=== PATIENT | female | born 1930 | race Caucasian/White ===

== ENCOUNTER 2017-10-05 12:29 | Inpatient (IN) | payer OTHER, MEDICARE ==
[~2017-10-05] VITALS: Ht 162.6 cm; Wt 63.3 kg
[~2017-10-05 12:29] MED LIST: ASPIRIN EC81 M1 PO; LISINOPRIL20 M1 PO; SIMVASTATIN40 M1 PO
--- NOTE | 2017-10-05 12:39 | ED AMS/SEIZURE/WEAK/DIZZY ---
History of Present Illness General Chief Complaint: General Adult Stated Complaint: BIBA LOW BP Source: patient Exam Limitations: clinical condition Vital Signs & Intake/Output Vital Signs & Intake/Output Vital Signs Date Time Temp Pulse Resp B/P B/P Pulse O2 O2 Flow FiO2 Mean Ox Delivery Rate 10/06 1434 97.7 84 22 150/72 95 Room Air 10/06 1220 98.2 80 18 155/75 95 Room Air 10/06 0840 98.7 75 18 140/67 97 Room Air 10/06 0834 98.7 75 18 140/67 96 Room Air 10/06 0523 98.4 73 16 106/54 98 Room Air 10/06 0214 Room Air 10/06 0047 98.4 66 20 128/74 98 10/05 2332 99.4 82 20 129/66 94 Room Air 10/05 2152 98.5 81 18 130/64 96 Room Air 10/05 2044 89.0 89 18 125/56 95 Room Air 10/05 1944 99.0 92 18 142/67 96 Room Air 10/05 1855 98.2 60 18 146/69 94 Room Air 10/05 1817 98.2 86 18 158/72 94 Room Air 10/05 1725 98.2 84 18 153/67 94 Room Air ED Intake and Output 10/06 0000 10/05 1200 Intake Total 2000 Output Total Balance 2000 Intake, IV 2000 Patient 140 lb Weight Weight Reported by Patient Measurement Method Allergies Coded Allergies: NO KNOWN ALLERGIES (08/25/16) NKA per Infusion Center nurse Ana. -- Lolly 07/28/14 Reconcile Medications Amlodipine Besylate 5 MG TABLET 1 TAB PO DAILY hypertension (Reported) Aspirin (Ecotrin*) 81 MG TABLET.DR 1 TAB PO DAILY heart heatlh (Reported) Lisinopril 20 MG TABLET 1 TAB PO DAILY high blood pressure (Reported) Simvastatin (Simvastatin*) 40 MG TABLET 1 TAB PO QPM heart health (Reported) Umeclidinium Brm/Vilanterol Tr (Anoro Ellipta 62.5-25 Mcg INH) 62.5 MCG-25 MCG/ ACTUATION BLST.W.DEV 1 PUFF INH BID COPD (Reported) Triage Nurses Notes Reviewed? yes Onset: Abrupt Duration: hour(s):, constant Timing: recent history Injury Environment: home Severity: moderate, severe No Modifying Factors: none HPI: 86-year-old female brought into the emergency room by ambulance for status. reports that she was acting normal this morning. He left to go to [employer] and when he returned she was confused laying in bed and vomiting. Patient is alert and oriented 3 but very poor historian and not able to answer a lot of questions at this time. Should she denies any pain. She's been more profoundly weak. Her blood pressure was 80 systolic in the ambulance. Her temperature is low here in the emergency room. She is a DNR/DNI (Paul Hartley) Past History Travel History Traveled to [place] past 21 day No Medical History Any Pertinent Medical History? 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 No (Paul Hartley) Review of Systems Review of Systems Constitutional: Reports: no symptoms. EENTM: Reports: no symptoms. Respiratory: Reports: see HPI. Cardiovascular: Reports: no symptoms. GI: Reports: see HPI. Genitourinary: Reports: no symptoms. Musculoskeletal: Reports: no symptoms. Skin: Reports: no symptoms. Neurological/Psychological: Reports: see HPI. Hematologic/Endocrine: Reports: no symptoms. Immunologic/Allergic: Reports: no symptoms. All Other Systems: Reviewed and Negative (Paul Hartley) Physical Exam Physical Exam General Appearance: alert, awake, lethargic, mild distress Head: atraumatic Eyes: Bilateral: normal appearance, EOMI. Ears, Nose, Throat: normal ENT inspection, hearing grossly normal Neck: normal inspection Respiratory: no respiratory distress Cardiovascular: regular rate/rhythm Gastrointestinal: soft Back: normal inspection Extremities: normal range of motion Neurologic/Psych: awake, alert, oriented x 3 Skin: cool/dry Core Measures ACS in differential dx? Yes CVA/TIA Diagnosis No Sepsis Present: Yes Sepsis Focused Exam Completed? No (Paul Hartley) Progress Differential Diagnosis: alcohol intoxication, anemia, benign positional vertigo, CVA/stroke, dehydration, drug intoxication, electrolyte imbalance, hypoglycemia, postural hypotension, presyncope, post-traumatic vertigo, sepsis, seizure disorder, subarachnoid Hem., UTI/pyelo, vertebrobasilar insuff Plan of Care: Orders Procedure Date/time Status CBC WITHOUT DIFFERENTIAL 10/07 0600 Active BASIC ELECTROLYTES PLUS BUN&CR 10/07 0600 Active Clear Liquid Diet 10/06 D Active TYPE & SCREEN (NOT X-MATCH) 10/06 1324 Complete CBC WITHOUT DIFFERENTIAL 10/06 1200 Complete Change service to 10/06 0752 Active MAGNESIUM 10/06 0600 Complete HEPATIC FUNCTION PANEL 10/06 0600 Complete CBC WITHOUT DIFFERENTIAL 10/06 0600 Complete BASIC ELECTROLYTES PLUS BUN&CR 10/06 0600 Complete TROPONIN LEVEL 10/06 0545 Complete B-TYPE NATRIURETIC PEP (BNP) 10/06 0545 Complete EKG 10/06 0300 Active Teach/Educate 10/06 0208 Active Pain Treatment and Response 10/06 0208 Active Nutritional Intake, Monitor 10/06 0208 Active Isolation 10/06 0208 Active Patient Care Conference 10/06 0208 Active INCENTIVE SPIROMETRY TRX (GEN) 10/06 UNK Active Lab Add-on Test 10/06 UNK Active Patient Data 10/05 210 Active Transfer patient to 10/05 2053 Active STREP PNEUMO URINARY ANTIGEN 10/05 1999 Complete LEGIONELLA URINARY ANTIGEN 10/05 1999 Complete URINE DRUGS OF ABUSE 10/05 2000 Complete TROPONIN LEVEL 10/05 2000 Complete EKG 10/05 2000 Active LACTIC ACID 10/05 1800 Complete TRC EVALUATION (GEN) 10/05 1711 Active Saline Lock 10/05 1711 Active Pathway - chart 10/05 1711 Active House Staff 10/05 1711 Active SPECIMEN TO BE OBTAINED 10/05 1711 Active Code Status 10/05 1711 Active TSH REFLEX 10/05 1255 Complete TOTAL TRIODOTHYROXINE 10/05 1255 Complete PROTHROMBIN TIME 10/05 1255 Complete FREE T4 10/05 1255 Complete CORTISOL PM 10/05 1255 Complete CREATINE PHOSPHOKINASE 10/05 1255 Complete TRC EVALUATION (GEN) 10/05 UNK Active Lab Add-on Test 10/05 UNK Active Weight 10/05 UNK Active Vital Signs 10/05 UNK Active Nursing Misc 10/05 UNK Active Intake & Output 10/05 UNK Complete FingerStick- Glucose 10/05 UNK Complete Activity/Ambulation 10/05 UNK Active Current Medications Sig/Traci Start time Last Medication Dose Stop Time Status Admin Vancomycin HCl 1,000 MG 1300 10/07 1300 CAN Atorvastatin Calcium 40 MG 1700 10/06 1700 AC (Lipitor) Metronidazole 500 MG IQ8 10/06 1600 AC (Flagyl) N/A 1 UNIT (No Carrier) Aspirin Buffered 81 MG DAILY 10/06 1000 AC 10/06 (Ecotrin) 1020 Tiotropium [place] 1 PUF DAILY 10/06 1000 AC 10/06 (Spiriva) 1020 Ceftazidime 1,000 MG Q8 10/05 2200 AC 10/06 (Fortaz) 1405 Albuterol Sulfate 3 ML Q4H PRN 10/05 1800 AC (Proventil) Acetaminophen 650 MG Q8P PRN 10/05 1745 AC 10/05 (Tylenol) 1842 Acetaminophen 1,000 MG BID PRN 10/05 1745 AC 10/05 (Ofirmev) 2252 Laboratory Tests 10/06/17 1348: CBC w Diff NO MAN DIFF REQ, RBC 3.87 L, MCV 91.7, MCH 31.2 H, MCHC 34.0, RDW 14.2, MPV 7.1 L, Gran % 83.5 H, Lymphocytes % 11.9 L, Monocytes % 3.8, Eosinophils % 0.7, Basophils % 0.1, Absolute Granulocytes 15.9 H, Absolute Lymphocytes 2.3, Absolute Monocytes 0.7 H, Absolute Eosinophils 0.1, Absolute Basophils 0 10/06/17 0545: Anion Gap 12, Estimated GFR > 60, BUN/Creatinine Ratio 27.1 H, Magnesium 1.7, Total Bilirubin 0.8, Direct Bilirubin 0.3, AST 33, ALT 26, Alkaline Phosphatase 23, Troponin I 0.06, [place] Pept 433 H, Total Protein 5.7 L, Albumin 2.8 L, CBC w Diff MAN DIFF ORDERED, RBC 3.69 L, MCV 92.7, MCH 30.3, MCHC 32.7 L, RDW 14.4, MPV 7.2 L, Gran % 83.8 H, Lymphocytes % 11.8 L, Monocytes % 3.9, Eosinophils % 0.3, Basophils % 0.2, Absolute Granulocytes 15.0 H, Segmented Neutrophils 76 H, Absolute Lymphocytes 2.1, Lymphocytes 24, Absolute Monocytes 0.7 H, Absolute Eosinophils 0.1, Absolute Basophils 0, Platelet Estimate ADEQUATE, Hypochromic-Microcytic 1+, Poikilocytosis 1+, Ovalocytes 1+, Fld Total RBCs Counted 100 10/06/17 0500: Sodium Cancelled, Potassium Cancelled, Chloride Cancelled, Carbon Dioxide Cancelled, Anion Gap Cancelled, BUN Cancelled, Creatinine Cancelled, BUN/ Creatinine Ratio Cancelled, CBC w Diff Cancelled, WBC Cancelled, RBC Cancelled, Hgb Cancelled, Hct Cancelled, MCV Cancelled, MCH Cancelled, MCHC Cancelled, RDW Cancelled, Plt Count Cancelled, MPV Cancelled 10/06/17 0300: Troponin I Cancelled 10/05/17 2327: Troponin I 0.06 10/05/17 232: Urine Opiates Screen < 100.00, Methadone Screen 40, Barbiturate Screen < 60, Ur Phencyclidine Scrn < 6.00, Amphetamines Screen < 100, U Benzodiazepines Scrn < 85, Urine Cocaine Screen < 50, Urine Cannabis Screen < 5.00 10/05/17 1852: Lactic Acid 2.0 10/05/17 1742: Methadone Screen Cancelled, Barbiturate Screen Cancelled, Ur Phencyclidine Scrn Cancelled, Amphetamines Screen Cancelled, U Benzodiazepines Scrn Cancelled, Urine Cocaine Screen Cancelled, Urine Cannabis Screen Cancelled Microbiology 10/05 2322 URINE ROUT: Legionella Antigen - COMP 10/05 2322 URINE ROUT: Streptococcus pneumoniae Antigen (M - COMP Diagnostic Imaging: Viewed by Me: Radiology Read, CT Scan. Discussed w/RAD: Radiology Read, CT Scan. Radiology Impression: PATIENT: LANETTE MEREDITH PRESENT AGE: 86 PATIENT ACCOUNT NO: [id number] : 32 LOCATION: [facility] ORDERING PHYSICIAN: Paul TORO SERVICE DATE: 10/05/17-1238 EXAM TYPE: RAD - XRY-PORTABLE CHEST XRAY EXAMINATION: XR PORTABLE CHEST CLINICAL INFORMATION: Altered mental status and hypothermia. COMPARISON: Prior chest radiograph dated 10/05/2017; CT thorax dated 03/02/2015. TECHNIQUE: Portable frontal view of the chest was obtained. FINDINGS: There is stable cardiomegaly. There is atherosclerotic change of the aortic knob. No pulmonary vascular congestion or congestive heart failure are seen. There is mild patchy airspace disease in the lateral mid and lower left lung field. There is again an undulating appearance of the right hemidiaphragm. There are again emphysematous changes. No pleural effusion or pneumothorax is seen. There is no acute osseous abnormality. IMPRESSION: 1. There is mild patchy airspace disease in the lateral mid and lower left lung field. 2. There are emphysematous changes. 3. There is mild cardiomegaly, without congestive heart failure. DICTATED BY: Guru Serrano MD DATE/TIME DICTATED:10/05/171503 CASH RECONCILIATION SPECIALIST:ARIELLA DATE/TIME TRANSCRIBED:10/05/171503 CONFIDENTIAL, DO NOT COPY WITHOUT APPROPRIATE AUTHORIZATION. <Electronically signed in Other Vendor System> SIGNED BY: Guru Serrano MD 10/05/17 1511, PATIENT: LANETTE MEREDITH PRESENT AGE: 86 PATIENT ACCOUNT NO: [id number] : 32 LOCATION: [facility] ORDERING PHYSICIAN: Paul TORO SERVICE DATE: 10/05/17 EXAM TYPE : CAT - CT HEAD WO IV CONTRAST EXAMINATION: CT HEAD WITHOUT CONTRAST CLINICAL INFORMATION: Altered mental status. COMPARISON: CT scan of the head 03/30/2015. TECHNIQUE: Contiguous axial imaging was performed from the skull base to vertex without intravenous administration of contrast. DLP: 619.8 mGy-cm FINDINGS: A dural based right frontal convexity mass consistent with the patient's known meningioma remains essentially unchanged when compared to prior imaging. No substantial intracranial mass effect and no midline shift. Lateral and third ventricles are proportionate to the subarachnoid spaces. No hydrocephalus. There is no acute intracranial hemorrhage. Numerous nonspecific foci of hypoattenuation are visualized within the periventricular white matter that most likely represent a chronic manifestation of small vessel ischemia. The calvarium and skull base are intact. Mastoid air cells and middle ear cavities are well aerated. Visualized paranasal sinuses are well aerated. Globes and orbits are symmetric. IMPRESSION: There are numerous chronic small vessel ischemic changes within the periventricular white matter. No evidence of acute territorial infarct or hemorrhage. A dural based right frontal convexity mass consistent with the patient's known meningioma remains essentially unchanged. DICTATED BY: José Miguel Schmidt MD DATE/TIME DICTATED:10/05/171345 CASH RECONCILIATION SPECIALIST: ARIELLA DATE/TIME TRANSCRIBED:10/05/171345 CONFIDENTIAL, DO NOT COPY WITHOUT APPROPRIATE AUTHORIZATION. <Electronically signed in Other Vendor System> SIGNED BY: José Miguel Schmidt MD 10/05/17 1354 Initial ED EKG: NSR, rate (73), nonspecific ST T wave chg (Paul Hartley) Departure Departure Disposition: STILL A PATIENT Condition: Stable Clinical Impression Primary Impression: Hypothermia Secondary Impressions: Pneumonia, Sepsis, UTI (urinary tract infection) Referrals: Guru Buck MD (PCP/Family) Departure Forms: Customer Survey General Discharge Information Admission Note Spoke With: Sohan Kirby MD Documentation of Exam: Documentation of any treatments & extenuating circumstances including Concerns Regarding Discharge (functional status, medication knowledge or non-compliance, living conditions, etc.) that warrant an admission rather than observation: Patient will require IV antibiotics. Patient required beart hugger. Repeat labs. Critical care management. Not medically safe for discharge. (Paul Hartley) PA/CATCH BASIN CLEANER Co-Sign Statement Statement: ED Attending supervision documentation- [X] I saw and evaluated the patient. I have also reviewed all the pertinent lab results and diagnostic results. I agree with the findings and the plan of care as documented in the PA's/CATCH BASIN CLEANER's documentation. [] I have reviewed the ED Record and agree with the PA's/CATCH BASIN CLEANER's documentation. [] Additions or exceptions (if any) to the PAs/CATCH BASIN CLEANER's note and plan are summarized below: [] I've seen and evaluated the patient. She is here for lethargy. Hypothermia. Rule out sepsis. She is DNR/DNI (Giacomo Singh DO) ED Sepsis Exam Date of Focused Sepsis Exam: 10/05/17 Time of Focused Sepsis Exam: 1300 Sepsis Cardiac Exam: Regular Rate/Rhythm Sepsis Resp Exam: DECREASED Sepsis Cap Refill Exam: <2 Sec Sepsis Peripheral Pulse Exam: Weak Sepsis Peripheral Pulse Location: Radial Sepsis Skin Color Exam: Pale Skin Temp/Moisture Exam: Cool/Dry (Paul Hartley) Critical Care Note Critical Care Note Critical Care Time: 30-74 min (60) (Paul Hartley)
[2017-10-05 13:12] LABS: ABSOLUTE BASOPHIL COUNT 0 /CUMM (0.0-0.2); ABSOLUTE EOSINOPHIL COUNT 0.1 /CUMM (0.0-0.7); ABSOLUTE GRANULOCYTE CT 4.3 /CUMM (1.4-6.5); ABSOLUTE LYMPH COUNT 4.3 /CUMM (1.2-3.4); ABSOLUTE MONOCYTE COUNT 0.1 /CUMM (0.10-0.60); BASOPHIL % 0.3 % (0.0-2.0); EOSINOPHIL % 1.3 % (0-5); GRANULOCYTE % 48.7 % (42.2-75.2); MEAN CORPUSCULAR HGB 30.9 PG (27.0-31.0); MEAN CORPUSCULAR HGB CONC 33.5 G/DL (33.0-37.0); MEAN PLATELET VOLUME 7.4 FL (7.4-10.4); PLATELET COUNT 253 /CUMM (130-400); RBC DISTRIBUTION WIDTH 13.9 % (11.5-14.5); RED BLOOD CELL CT 4.78 /CUMM (4.20-5.40); WHITE BLOOD CELL COUNT 8.9 /CUMM (4.8-10.8)
--- NOTE | 2017-10-05 13:54 | CT SCAN REPORT ---
EXAMINATION: CT HEAD WITHOUT CONTRAST CLINICAL INFORMATION: Altered mental status. COMPARISON: CT scan of the head 03/30/2015. TECHNIQUE: Contiguous axial imaging was performed from the skull base to vertex without intravenous administration of contrast. DLP: 619.8 mGy-cm FINDINGS: A dural based right frontal convexity mass consistent with the patient's known meningioma remains essentially unchanged when compared to prior imaging. No substantial intracranial mass effect and no midline shift. Lateral and third ventricles are proportionate to the subarachnoid spaces. No hydrocephalus. There is no acute intracranial hemorrhage. Numerous nonspecific foci of hypoattenuation are visualized within the periventricular white matter that most likely represent a chronic manifestation of small vessel ischemia. The calvarium and skull base are intact. Mastoid air cells and middle ear cavities are well aerated. Visualized paranasal sinuses are well aerated. Globes and orbits are symmetric. IMPRESSION: There are numerous chronic small vessel ischemic changes within the periventricular white matter. No evidence of acute territorial infarct or hemorrhage. A dural based right frontal convexity mass consistent with the patient's known meningioma remains essentially unchanged.
--- NOTE | 2017-10-05 15:11 | RADIOLOGY REPORT ---
EXAMINATION: XR PORTABLE CHEST CLINICAL INFORMATION: Altered mental status and hypothermia. COMPARISON: Prior chest radiograph dated 10/05/2017; CT thorax dated 03/02/2015. TECHNIQUE: Portable frontal view of the chest was obtained. FINDINGS: There is stable cardiomegaly. There is atherosclerotic change of the aortic knob. No pulmonary vascular congestion or congestive heart failure are seen. There is mild patchy airspace disease in the lateral mid and lower left lung field. There is again an undulating appearance of the right hemidiaphragm. There are again emphysematous changes. No pleural effusion or pneumothorax is seen. There is no acute osseous abnormality. IMPRESSION: 1. There is mild patchy airspace disease in the lateral mid and lower left lung field. 2. There are emphysematous changes. 3. There is mild cardiomegaly, without congestive heart failure.
--- NOTE | 2017-10-05 16:40 | History & Physical ---
Percy Starks 10/05/17 8269: General Information and HPI MD Statement: I have seen and personally examined LANETTE MEREDITH and documented this H&P. The patient is a 86 year old F who presented with a patient stated chief complaint of an acute onset of altered mental status the am of admission. Source of Information: patient Exam Limitations: no limitations History of Present Illness: Ms Meredith is a 86 year old woman w/ a PMHx of stable meningioma, HTN, HLD, COPD( not on oxygen) was brought in by the [facility], when she was found to have an acute change in mentation the am of presentation. She was last known to be normal was in the am, when she had a usual day with having coffee, and had a normal conversation with the , and her relatives over the phone. Around the later part of am, when her returned from running a daily chores after an hour, she was found in her bed, saying "she feels hot", and was removing her clothes. She was reported to be confused, and didnt know where she was at that time. The episode lasted for less than 30 minutes, when the EMS arrived and was found to have had low blood pressure SBP~ 80s. She also reported several episodes of diarrhea that started around the same time, and continued to have several episodes of diarrhea since the am. She did not have any loss of consciousness, loss of bladder or bowel function, neurological deficits, seizures. She did not have any cough, fever, chills, sorethoat, vision changes in the last few days. She reported taking a new medication, prevogen OTC for memory enhacement that was srarted a few days ago. No other changes in medications, including abx use in the last few weeks. No hot/cold intolerance, no prednisone use, no ivda, or opiate use, benzo use, no neck pain/stiffness, no shortness of breath, palpitations or CP. Reported remote tx of arthritis w/ NSAIDs. No knee pain/ erythema/rashes. No jaundice, no recent changes in diet, travel, or sick contacts. Allergies/Medications Allergies: Coded Allergies: NO KNOWN ALLERGIES (08/25/16) NKA per Infusion Center nurse Ana. Yi Ambrocio 07/28/14 Home Med list Amlodipine Besylate 5 MG TABLET 1 TAB PO DAILY hypertension (Reported) Aspirin (Ecotrin*) 81 MG TABLET.DR 1 TAB PO DAILY heart heatlh (Reported) Lisinopril 20 MG TABLET 1 TAB PO DAILY high blood pressure (Reported) Simvastatin (Simvastatin*) 40 MG TABLET 1 TAB PO QPM heart health (Reported) Umeclidinium Brm/Vilanterol Tr (Anoro Ellipta 62.5-25 Mcg INH) 62.5 MCG-25 MCG/ ACTUATION BLST.W.DEV 1 PUFF INH BID COPD (Reported) Past History Travel History Traveled to [place] past 21 day No Medical History Neurological: MENINGIOMA BRAIN EENT: NONE Cardiovascular: hypertension, HIGH CHOLESTEROL Respiratory: COPD Gastrointestinal: NONE Hepatic: NONE Renal: NONE Musculoskeletal: NONE Psychiatric: NONE Endocrine: POLYMYALGIA RHEUMATICA Blood Disorders: NONE Cancer(s): NONE 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 spouse Services at Home: None ETOH Use: denies use Illicit Drug Use: denies illicit drug use Functional Ability ADLs Independent: dressing, eating, toileting, bathing. Ambulation: independent IADLs Independent: shopping, housework, finances, food prep, telephone, transportation , medication admin. Review of Systems Review of Systems Constitutional: Reports: see HPI. Denies: chills, fever, weakness. EENTM: Denies: blurred vision, visual changes. Cardiovascular: Denies: chest pain, edema, orthopena, palpitations. Respiratory: Denies: orthopnea, short of breath. GI: Reports: diarrhea, nausea. Denies: abdominal pain, melena, vomiting. Genitourinary: Denies: dysuria. Musculoskeletal: Denies: back pain. Skin: Denies: change in skin color. Neurological/Psychological: Denies: anxiety. Hematologic/Endocrine: Denies: see HPI, bleeding. Immunologic/Allergic: Denies: lymphadenopathy. Exam & Diagnostic Data Last 24 Hrs of Vital Signs/I&O Vital Signs Date Time Temp Pulse Resp B/P B/P Pulse O2 O2 Flow FiO2 Mean Ox Delivery Rate 10/05 1655 97.5 81 16 146/83 96 Room Air 10/05 1557 96.4 60 18 133/61 94 Room Air 10/05 1442 94.3 88 20 137/88 98 Room Air 10/05 1417 93.7 80 20 135/62 96 Room Air 10/05 1346 93.2 83 16 141/69 96 Room Air 10/05 1317 92.8 55 20 115/60 99 Room Air 10/05 1300 97 Room Air 10/05 1245 93.7 80 20 106/58 97 Room Air Intake & Output 10/05 1600 10/05 0800 10/05 0000 Intake Total 2000 Output Total Balance 2000 Intake, IV 2000 Patient 140 lb Weight Weight Reported by Patient Measurement Method Physical Exam General Appearance Alert, Oriented X3, Cooperative, No Acute Distress Skin No Rashes, No Breakdown, No Significant Lesion Skin Temp/Moisture Exam: Warm/Dry Sepsis Skin Exam (color): Normal for Ethnicity HEENT Atraumatic, PERRLA, EOMI, Mucous Membr. moist/pink Neck Supple, No JVD, No thryomegaly, +2 Carotid Pulse wo Bruit Lymphatic Axillary nl, Cervical nl Cardiovascular Regular Rate, Normal S1, Normal S2, No Murmurs Lungs Clear to Auscultation, Normal Air Movement Abdomen Normal Bowel Sounds, Soft, No Hepatospenomegaly, No Masses, tenderness in the left lower quadrant Neurological Normal Speech, Strength at 5/5 X4 Ext, Normal Tone, Sensation Intact, Cranial Nerves 3-12 NL, Reflexes 2+, finger nose test normal, gait not tested. Extremities No Clubbing, No Cyanosis, No Edema, Normal Pulses, No Tenderness/ Swelling Vascular Normal Pulses, Pulses Symmetrical Sepsis Peripheral Pulse Location: Dorsalis Pedis Sepsis Peripheral Pulse Exam: Normal Last 24 Hrs of Labs/David: Laboratory Tests 10/05/17 1531: Lactic Acid 2.2 H 10/05/17 1320: Urinalysis MOD H, Urine Color TODD, Urine Clarity HAZY H, Urine pH 6.0, Ur Specific [place] 1.025, Urine Protein 100 H, Urine Ketones 15 H, Urine Nitrite POS H, Urine Bilirubin NEG@ICTO, Urine Urobilinogen 2.0 H, Ur Leukocyte Esterase MOD H, Ur Microscopic SEDIMENT EXAMINED, Urine RBC RARE, Urine WBC 10- 15 H, Ur Epithelial Cells MANY H, Hyaline Casts 10-15 H, Granular Casts RARE H, Urine Hemoglobin NEG, Urine Glucose NEG 10/05/17 1255: Anion Gap 16, Estimated GFR > 60, BUN/Creatinine Ratio 27.5 H, Glucose 173 H, Lactic Acid 2.9 H, Calcium 9.6, Total Bilirubin 1.0, AST 38 H, ALT 20, Alkaline Phosphatase 44, Creatine Kinase Pending, Troponin I 0.06, Total Protein 8.2, Albumin 4.3, Globulin 3.9, Albumin/Globulin Ratio 1.1, TSH &T3 &Free T4 Intrp Pending, Cortisol PM Sample Pending, PT 11.1, INR 1.06, CBC w Diff NO MAN DIFF REQ, RBC 4.78, MCV 92.0, MCH 30.9, MCHC 33.5, RDW 13.9, MPV 7.4, Gran % 48.7, Lymphocytes % 48.3, Monocytes % 1.4 L, Eosinophils % 1.3, Basophils % 0.3 , Absolute Granulocytes 4.3, Absolute Lymphocytes 4.3 H, Absolute Monocytes 0.1 , Absolute Eosinophils 0.1, Absolute Basophils 0 Microbiology 10/05 1440 STOOL: Clostridium difficile Toxin A & B - RECD 10/05 1440 STOOL: Stool Culture - RECD 10/05 1320 URINE ROUT: Urine Culture - RECD 10/05 1313 BLOOD: Blood Culture - RECD 10/05 1312 NASOPHARYN: Influenza Virus A & B Rapid Smear - COMP 10/05 1255 BLOOD: Blood Culture - RECD Diagnostic Data EKG Results NSR LAFB No STTWI. CXR Results 1. There is mild patchy airspace disease in the lateral mid and lower left lung field. 2. There are emphysematous changes. 3. There is mild cardiomegaly, without congestive heart failure. Other Results CT head: There are numerous chronic small vessel ischemic changes within the periventricular white matter. No evidence of acute territorial infarct or hemorrhage. A dural based right frontal convexity mass consistent with the patient's known meningioma remains essentially unchanged. Assessment/Plan Assessment: Ms Meredith is a 86 year old woman w/ a PMHx of stable meningioma, HTN, HLD, COPD( not on oxygen) was brought in by the [facility], when she was found to have an acute change in mentation and hypothermia likely secondary to diarrhea or an infectious etiology such as pneumonia could be likely. Vitals at the time of admission, temp 93.7-->98( after using jocelyne hugger ), AK 80, BP 106/58-->137/88, 97% RA. Pertinent lab finding: WBC 8.9 w/ no clear granulocytosis or monocytosis. Hb 14.8 K 4.1, HCO3 19, BUN 22, Sr Cr 0.8 LA 2.9-->2.2-->2.0 AST 38, ALT 20 Trop 0.06 CxR revealed mild patchy airspace opacification. CT head revealed numerous chronic small vessel ischemic changes within theperiventricular white matter. No evidence of acute territorial infarct or hemorrhage. A dural based right frontal convexity mass consistent with the patient's known meningioma remains essentially unchanged. Etiology in her case that might have caused an acute change in altered mentation is likely infectious cause from pneumonia or diarrhea. She did not have any s/s s/o infection prior to this epside such as respiratory or urinary, yet radiological findings are s/o airspace disease and UA revealed pyuria and ULE+, nitrites positive. Other important cause is diarrhea w/ tenderness on the LLQ is s/o of enteritis or diverticultis, however no CT scan was done. She improved remarkably while she was in the ED, with normalization of temperature on jocelyne hugger; could be discontiued. Other causes such as endocrine abnormalities of thyroid and adrenals is likely which could be tested. Plan: 1. Respiratory: She has been tx w/ ceftazidime and vancomycin which could be continued pending cultures. If the pt doesnt have any white count in the am, and doesnt have any s/o infectious etiology would dc abx. Follow up cultures. 2. Infectious: as above. If she continues to have diarrhea, could obtain CT scan abdomen to rule out any intrabdominal processes. Follow c diff and stool cutures that were sent from the ED. 3. Circulatory: Hold anti-hypertensives for now. She was found to be hypotensives, which should be followed closely. 4. Metabolic: Normal renal function. Check Accuchecks. Check TSH, Cortisol. DVT PPx: Heparin sc Lines: iv peripheral DNR/DNI Meds held- anti-hypertensives. As Ranked By This Provider Problem List: 1. Pneumonia 2. UTI (urinary tract infection) 3. Hypothermia 4. DNI (do not intubate) 5. DNR (do not resuscitate) 6. DVT prophylaxis Core Measures/Misc (05/24) Acute Coronary Syndrome ACS Diagnosis: No Congestive Heart Failure Congestive Heart Failure Diagnosis No Cerebrovascular Accident CVA/TIA Diagnosis: No VTE (View Protocol) VTE Risk Factors Acute Medical Illness No Mechanical VTE Prophylaxis d/t N/A MechProphylax Ordered No VTE Pharm Prophylaxis d/t NA PharmProphylax ordered Sepsis (View protocol) Sepsis Present: No Sohan Kirby MD 10/05/171: Attending MD Review Statement Attending Statement Attending MD Statement: examined this patient, discuss w/resident/PA/MANAGER RISK MANAGEMENT, agreed w/resident/PA/MANAGER RISK MANAGEMENT, reviewed EMR data (avail), discussed with nursing, reviewed images, amended to note Attending Assessment/Plan: The patient is an 86 yo female with h/o TIA, HTN, HL, and COPD who was brought to the ED by ambulance when she was found this morning by her after he returned from shopping at [employer] with altered mental status (confused in bed - with clothes off), nausea and vomiting with diarrhea. Was found to be hypothermic (93.7 in ED) and hypotensive (80 systolic in field). Symptoms had begun suddenly that morning. The patient was alert and oriented at the time of my exam after body temperature increased with Jocelyne hugger and BP increased with fluids. She did c/o some mild left upper quadrant abdominal pain. No blood per rectum. She denied dysuria, headache, cough, nasal congestion, dyspnea, chest pain or other symptoms. Nausea had resolved. In the ED she was yu cultured (she stated she had diarrhea in the ED, however specimen had not been collected). She denied any sick contacts. She had been in her usual state of health the day prior to admission. She stated that she had not taken any of her BP meds in the morning and had only had some Ensure to drink. She had a course of po antibiotics in August 2017. Physical Exam: VS: T 93.7-94.3 (Jocelyne hugger), BP 80 sys- 137/88, P 88, R 20, PO 98% RA HEENT: eyes- PERRLA, EOMI agatha- dry mucosa, no lesions Neck: no adenopathy, bruits, or JVD Chest: clear to A&P Cor: RRR nl S1, S2 w/o murm Abd: BS+, soft, + mild LUQ tenderness w/o guarding/rebound, no HSM Ext: no edema, pulses 2+ Neuro: alert & oriented x 3, non-focal exam Labs/Tests- as above Impression/Plan: #Hypothermia- acutely this morning. No h/o prior problems. Suspect sepsis as etiology. ED placed Jocelyne hugger with some increase in temp. Was told patient could be admitted to general medicine, however concerned regarding potential decrease in temperature after Jocelyne hugger removed and this device only allowed in ICU at [facility]. She is DNR/DNI by her request, however lives with and is completely functional and would treat her aggressively. Other etiologies of hypothermia (hypothyroid, adrenal insufficiency, etc.) less likely. Plan: Admit to ICU - monitor for need for Jocelyne hugger. Monitor temperature closely. Work-up for sepsis. Check TSH, cortisol, etc. #Hypotension/Possible Sepsis- BP in field was 80 systolic. The patient has some evidence of mild volume depletion (decreased skin turgor, elevated urine SG, etc.), however concern regarding potential sepsis. ED felt there may be some pneumonia, however no pulmonary symptoms and chest exam normal. Only symptoms are GI- nausea/vomiting/diarrhea. Does have some pyuria, however denies urinary symptoms. EKG with no acute changes. Doubt ischemic bowel. Plan: Yu culture- including stool for C-difficile (did have antibiotic course 08/23). Empiric antibiotics given in ED (Vanco/Ceftaz). ID input in morning. Check serial troponin I levels. Aggressive fluid repletion as per sepsis protocol. ?CT abd/pel- may need GI input. Check stool for blood. #Lactic Acidosis- noted elevated lactate level 2.9. Plan: Follow-up level at 3 hours as per sepsis protocol. #H/O Hypertension- patient did not take her BP meds (Amlodipine/Lisinopril) this morning and had BP 80 systolic after being found. Plan: Hold anti-hypertensives as above and follow BP closely. #Altered Mental Status- resolved once BP and temp increased. CT head does show stable known meningioma. Plan: Will follow mental status. #H/O TIA- as per patient. Plan: Continue ASA once taking po. #H/O COPD- per patient. Pulse ox normal and no wheeze. Plan: Continue inhaler. #Pyuria- 10-15 WBC, no symptoms. Plan: Await culture- patient received Ceftaz and Vanco in ED.
[2017-10-05 17:40] LABS: PT 11.1 SEC (9.4-12.5)
[2017-10-05] MEDS ORDERED: AMLODIPINE BESYL5 M1 PO (17:47)
[2017-10-05] MEDS ORDERED: ANORO ELLIPTA1 EACH INH (17:47)
--- NOTE | 2017-10-05 19:37 | Admission Certification ---
Admission Certification Certification Statement - As attending physician, I certify that at the time of - admission, based on clinical presentation, severity of - symptoms, need for further diagnostic testing and - therapeutic interventions, and risk of adverse outcomes - without in-hospital treatment, in my clinical assessment, - this patient requires an acute hospital stay for a minimum - of two nights or longer. I have also considered psychsocial - factors such as support system, advanced age, financial - issues, cognitive issues, and failed out-patient treatments, - past re-admission history, safety of patient, and lack of - compliance as applicable. Specific rationale supporting this admission is: The patient presents with initial altered mental status, hypothermia (93.7), hypotension (80 sys), elevated lactate (2.9)- diarrhea/vomiting/pyuria- may represent sepsis. Needs Liseth costa, yu-cultures (including C-diff), IV antibiotics (Vanco/Ceftaz given in ED), close monitoring, IV fluids, follow-up lactate as per sepsis protocol. Check TSH, cortisol, etc. Initial ICU care as now on Liseth costa. If BP and temp correct may transfer to [facility].
[2017-10-06 00:47] VITALS: BP 128/74
[2017-10-06 05:55] LABS: ABSOLUTE BASOPHIL COUNT 0 /CUMM (0.0-0.2); ABSOLUTE EOSINOPHIL COUNT 0.1 /CUMM (0.0-0.7); ABSOLUTE LYMPH COUNT 2.1 /CUMM (1.2-3.4); ABSOLUTE MONOCYTE COUNT 0.7 /CUMM (0.10-0.60); BASOPHIL % 0.2 % (0.0-2.0); EOSINOPHIL % 0.3 % (0-5); MEAN CORPUSCULAR HGB 30.3 PG (27.0-31.0); MEAN CORPUSCULAR HGB CONC 32.7 G/DL (33.0-37.0); MEAN CORPUSCULAR VOLUME 92.7 FL (81.0-99.0); MEAN PLATELET VOLUME 7.2 FL (7.4-10.4); PLATELET COUNT 207 /CUMM (130-400); RBC DISTRIBUTION WIDTH 14.4 % (11.5-14.5); RED BLOOD CELL CT 3.69 /CUMM (4.20-5.40)
[2017-10-06 06:10] LABS: GRANULOCYTE % 83.8 % (42.2-75.2); HEMATOCRIT 34.2 % (37-47); WHITE BLOOD CELL COUNT 17.9 /CUMM (4.8-10.8)
--- NOTE | 2017-10-06 08:01 | RADIOLOGY REPORT ---
EXAMINATION: XR PORTABLE CHEST CLINICAL INFORMATION: Pneumonia, post fluid resuscitation. COMPARISON: Portable chest x-ray, 10/05/2017 at 2:18 PM TECHNIQUE: Portable frontal view of the chest was obtained. FINDINGS: Patchy densities are present in the bilateral lung bases. A small linear area of increased density is noted in the left mid lung superior to the left cardiac border. There is prominence of the central pulmonary vessels as well as prominent pulmonary interstitial markings. Stable cardiomegaly is noted. There is no evidence of pleural effusion or pneumothorax. The bony structures and overlying soft tissues are unremarkable. No lines and tubes are observed at this time. IMPRESSION: 1. Prominence of the central pulmonary vessels and interstitial markings suggestive of pulmonary vascular congestion. 2. Patchy densities bilateral lung bases concerning for an infiltrative process. The linear density in the left mid lung has morphology more suggestive of focal platelike atelectasis.
[2017-10-06 08:40] VITALS: BP 140/67
--- NOTE | 2017-10-06 11:08 | PN- Housestaff ---
Roland Leyva MD 10/06/17 1108: Subjective Follow-up For: hypothermia altered mental status Complaints: no complaints Subjective: feeling well, currently without complaints yesterday she said she had some left sided abdominal pain and mild cough but no dysuria fevers or chills Review of Systems Constitutional: Reports: see HPI. Objective Last 24 Hrs of Vital Signs/I&O Vital Signs Date Time Temp Pulse Resp B/P B/P Pulse O2 O2 Flow FiO2 Mean Ox Delivery Rate 10/06 1220 98.2 80 18 155/75 95 Room Air 10/06 0840 98.7 75 18 140/67 97 Room Air 10/06 0834 98.7 75 18 140/67 96 Room Air 10/06 0523 98.4 73 16 106/54 98 Room Air 10/06 0214 Room Air 10/06 0047 98.4 66 20 128/74 98 10/05 2332 99.4 82 20 129/66 94 Room Air 10/05 2152 98.5 81 18 130/64 96 Room Air 10/05 2044 89.0 89 18 125/56 95 Room Air 10/05 1944 99.0 92 18 142/67 96 Room Air 10/05 1855 98.2 60 18 146/69 94 Room Air 10/05 1817 98.2 86 18 158/72 94 Room Air 10/05 1725 98.2 84 18 153/67 94 Room Air 10/05 1655 97.5 81 16 146/83 96 Room Air 10/05 1557 96.4 60 18 133/61 94 Room Air 10/05 1442 94.3 88 20 137/88 98 Room Air 10/05 1417 93.7 80 20 135/62 96 Room Air Intake & Output 10/06 1600 10/06 0800 10/06 0000 Intake Total 200 200 Output Total 1999 200 Balance -1800 0 Intake, Oral 200 200 Number 2 Bowel Movements Output, Urine 1999 200 Patient 63.503 kg 63.503 kg Weight Weight Reported by Patient Measurement Method Physical Exam General Appearance: Alert, Oriented X3, Cooperative, No Acute Distress Cardiovascular: Regular Rate, Normal S1, Normal S2, 2/6 murmur Lungs: bibasilar crackles Abdomen: Normal Bowel Sounds, Soft, No Masses, minimal left sided tenderness to palpation, no rebound tenderness or guarding Extremities: No Clubbing, No Cyanosis, No Edema, Normal Pulses Current Medications: Current Medications Sig/Traci Start time Last Medication Dose Route Stop Time Status Admin Acetaminophen 0 .STK-MED ONE 10/05 2245 DC IV Acetaminophen 0 .STK-MED ONE 10/05 1841 DC PO Acetaminophen 650 MG Q8P PRN 10/05 1745 AC 10/05 PO 1842 Acetaminophen 1,000 MG BID PRN 10/05 1745 AC 10/05 IV 2252 Albuterol Sulfate 3 ML Q4H PRN 10/05 1800 AC INH Aspirin Buffered 81 MG DAILY 10/06 1000 AC 10/06 PO 1020 Atorvastatin Calcium 40 MG 1700 10/06 1700 AC PO Ceftazidime 0 .STK-MED ONE 10/06 05 DC .ROUTE Ceftazidime 0 .STK-MED ONE 10/05 2217 DC .ROUTE Ceftazidime 1,000 MG Q8 10/05 2200 AC 10/06 IV 0546 Dextrose/Sodium 1,000 ML .Q20H 10/05 1700 DC 10/05 Chloride IV 1724 Heparin Sodium 0 .STK-MED ONE 10/06 05 DC (Porcine) .ROUTE Heparin Sodium 0 .STK-MED ONE 10/05 2217 DC (Porcine) .ROUTE Heparin Sodium 5,000 UNIT Q8 10/05 2200 DC 10/06 (Porcine) SC 0546 Ibuprofen 0 .STK-MED ONE 10/06 0052 DC PO Ibuprofen 400 MG ONCE ONE 10/06 0045 DC 10/06 PO 10/06 0046 0059 Melatonin 5 MG ONCE ONE 10/06 0045 DC 10/06 PO 10/06 0046 0059 Sodium Chloride 1,000 ML Q6H 10/06 1000 AC 10/06 IV 1020 Tiotropium [place] 1 PUF DAILY 10/06 1000 AC 10/06 INH 1020 Vancomycin HCl 1,000 MG 1300 10/07 1300 CAN IV Vancomycin HCl 1,000 MG 1300 10/06 1300 AC Dextrose/Water 250 ML IV Vancomycin HCl 1,000 MG ONCE ONE 10/05 1300 DC 10/05 Dextrose/Water 250 ML IV 10/05 1359 1349 Last 24 Hrs of Lab/David Results Last 24 Hrs of Labs/Mics: Laboratory Tests 10/06/17 1348: CBC w Diff Pending, WBC Pending, RBC Pending, Hgb Pending, Hct Pending, MCV Pending, MCH Pending, MCHC Pending, RDW Pending, Plt Count Pending, MPV Pending 10/06/17 0545: Anion Gap 12, Estimated GFR > 60, BUN/Creatinine Ratio 27.1 H, Magnesium 1.7, Total Bilirubin 0.8, Direct Bilirubin 0.3, AST 33, ALT 26, Alkaline Phosphatase 23, Troponin I 0.06, [id number] Pept 433 H, Total Protein 5.7 L, Albumin 2.8 L, CBC w Diff MAN DIFF ORDERED, RBC 3.69 L, MCV 92.7, MCH 30.3, MCHC 32.7 L, RDW 14.4, MPV 7.2 L, Gran % 83.8 H, Lymphocytes % 11.8 L, Monocytes % 3.9, Eosinophils % 0.3, Basophils % 0.2, Absolute Granulocytes 15.0 H, Segmented Neutrophils 76 H, Absolute Lymphocytes 2.1, Lymphocytes 24, Absolute Monocytes 0.7 H, Absolute Eosinophils 0.1, Absolute Basophils 0, Platelet Estimate ADEQUATE, Hypochromic-Microcytic 1+, Poikilocytosis 1+, Ovalocytes 1+, Fld Total RBCs Counted 100 10/06/17 0500: Sodium Cancelled, Potassium Cancelled, Chloride Cancelled, Carbon Dioxide Cancelled, Anion Gap Cancelled, BUN Cancelled, Creatinine Cancelled, BUN/ Creatinine Ratio Cancelled, CBC w Diff Cancelled, WBC Cancelled, RBC Cancelled, Hgb Cancelled, Hct Cancelled, MCV Cancelled, MCH Cancelled, MCHC Cancelled, RDW Cancelled, Plt Count Cancelled, MPV Cancelled 10/06/17 0300: Troponin I Cancelled 10/05/17 2327: Troponin I 0.06 10/05/17 2323: Urine Opiates Screen < 100.00, Methadone Screen 40, Barbiturate Screen < 60, Ur Phencyclidine Scrn < 6.00, Amphetamines Screen < 100, U Benzodiazepines Scrn < 85, Urine Cocaine Screen < 50, Urine Cannabis Screen < 5.00 10/05/17 1852: Lactic Acid 2.0 10/05/17 1742: Methadone Screen Cancelled, Barbiturate Screen Cancelled, Ur Phencyclidine Scrn Cancelled, Amphetamines Screen Cancelled, U Benzodiazepines Scrn Cancelled, Urine Cocaine Screen Cancelled, Urine Cannabis Screen Cancelled 10/05/17 1531: Lactic Acid 2.2 H Microbiology 10/05 2323 URINE ROUT: Legionella Antigen - COMP 10/05 232 URINE ROUT: Streptococcus pneumoniae Antigen (M - COMP 10/05 1440 STOOL: Clostridium difficile Toxin A & B - RES 10/05 1440 STOOL: Stool Culture - RES Assessment/Plan Assessment: 86 year old woman w/ a PMHx of stable meningioma, HTN, HLD, COPD (not on oxygen) presented with altered mental status and hypothermia. Altered mental status- in the setting of hypotension and possible sepsis CT head revealed numerous chronic small vessel ischemic changes within theperiventricular white matter. No evidence of acute territorial infarct or hemorrhage. A dural based right frontal convexity mass consistent with the patient's known meningioma remains essentially unchanged. Patient reports some abdominal pain and cough yesterday, denies dysuria Hypothermia, lactic acidemia, leukocytosis with borderline blood pressure, uncertain source Started empirically on vancomycin ceftazidime Follow up urine blood and sputum cultures Follow up imaging CT chest/abdomen/pelvis with IV contrast Check thyroid function- TSH elevated T4 T3 wnl Blood pressure improved with intravascular volume resuscitation Hypothermia improved with jocelyne hugger use Influenza negative, strep pneumo and legionella urinary antigens negative Urinalysis suggestive of infection but with many epithelial cells, follow up culture, asypmomatic GI bleed: bright red blood per rectum likely ischemic versus infectious colitis Obtain CT abdomen pelvis with contrast to assess for ischemia Continue vancomycin and ceftazidime pending CT results Type and screen Intravascular volume resuscitation with normal saline Repeat CBC Hold antihypertensives Clear liquid diet DVT ppx-mechanical ALPs only with GI bleed DNR/DNI Problem List: 1. Hypertension 2. Hyperlipidemia 3. Hypothermia 4. Sepsis Pain Ratin Pain Location: n/a Pain Goal: Pain 4 or less Pain Plan: prn Tomorrow's Labs & Rationales: cbc, bep Ayana Lincoln MD 10/06/17 1314: Attending MD Review Statement Attending Statement Attending MD Statement: examined this patient, discuss w/resident/PA/MECHANICAL SHOVEL OPERATOR, agreed w/resident/PA/MECHANICAL SHOVEL OPERATOR, reviewed EMR data (avail) Attending Assessment/Plan: 86F PMH TIA, HTN, HL, and COPD admitted overnight after being found agitated, confused, febrile by at home. Patient was in her usual state of health on the morning of admission, suddenly became agitated, complained of being hot, then lethargic, in ED was found to have temp of 92.7 with BP 106/50, placed on warming blanket and IV fluids, and mental status and temp slowly returned to normal, placed on Vancomycin and Ceftazidime in ED, found to have WBC 17.9, lactate 2.9, normal renal function. Patient is back to her baseline today. She has no complaints and feels well. She did have bright red bloody stool this morning, but denies abdominal pain or discomfort, and has no recent history of GI complaints. No cough or SOB. Repeat CXR shows evidence of bilateral lower lobe pneumonia. 1. Severe sepsis 2. Hypothermia 3. Bilateral lower lobe pneumonia 4. Hematochezia Plan - Continue on general medicine - Continue Vancomycin and Ceftazidime for now, as patient was clearly septic with source most likely pneumonia, but given lack of cough and sputum, cannot rule out other infection - Obtain CT abdomen/pelvis to look for possible infectious or ischemic colitis - Follow blood, urine, sputum cultures - Continue home medications - DVT PPx
[2017-10-06 12:20] VITALS: BP 155/75
--- NOTE | 2017-10-06 13:44 | CT SCAN REPORT ---
EXAMINATION: CT CHEST ABDOMEN AND PELVIS WITH CONTRAST CLINICAL INFORMATION: Bibasilar densities, right red blood per rectum and abdominal pain. COMPARISON: CT pulmonary angiogram dated 03/02/2015. TECHNIQUE: Multidetector volumetric imaging was performed of the chest, abdomen and pelvis after the IV administration of 95 mL of Optiray 320 intravenous contrast. Sagittal and coronal reformatted images were obtained on the technologist's workstation. DLP: 380.33 mGy-cm FINDINGS: LUNGS: A soft tissue mass is present in the posterior aspect of the left lung base measuring 1.1 cm in diameter, and associated linear densities are present in the immediate local region (series 4, 387/952). Interstitial pleural thickening is present in the bilateral lung bases. There are severe cystic/emphysematous changes present throughout the bilateral upper and lower lobes, as well as the right middle lobe, peripheral and central. There is a prominent area of soft tissue material measuring approximately 3.0 x 1.8 x 1.9 cm in size in the posterior margin of the first branch of the left main pulmonary trunk, this is soft tissue density by Hounsfield units suggestive of a conglomeration of lymph nodes, smaller lymph nodes are present in the immediate local region, however there is mass effect on the posterior aspect of the pulmonary trunk just proximal to the bifurcation with resultant narrowing of the vessel. Soft tissue is present surrounding the vascular structures in the left hilar region. Multiple prominent mediastinal lymph nodes are present, all are subcentimeter in short axis dimension however there are numerous of the lymph nodes. The largest in the subcarinal region measures 0.9 cm in short axis dimension. CARDIAC \T\ VESSELS: The cardiac structures are normal in appearance; a cardiac stent is present with coronary vascular calcifications. Mild atherosclerotic plaque is present within the thoracic aorta. The thyroid lobes are unremarkable. BRONCHIAL: No endobronchial findings are noted. LIVER, GALLBLADDER, AND BILIARY TREE: The liver is normal in size, shape, and attenuation. No focal hepatic lesion or biliary ductal dilatation is present. The gallbladder is unremarkable with no evidence of radiopaque gallstones, gallbladder wall thickening, or obvious pericholecystic inflammatory changes. PANCREAS: Unremarkable. SPLEEN: Perisplenic free fluid is present, which tracks along the left lateral conal fascial to the dependent portion of the pelvis. No focal splenic lesions are noted. Vascular calcifications are present in the splenic hilum.. ADRENAL GLANDS: Unremarkable. KIDNEYS AND URETERS: Extrarenal pelves are incidentally noted. There is a 2.9 cm simple right renal cyst in the mid region of the right kidney. The kidneys are normal in size, shape, and attenuation. No hydronephrosis, hydroureter, or calculi seen. No perinephric stranding. BLADDER: A Schmidt catheter is present within the bladder lumen. GASTROINTESTINAL TRACT: The small bowel loops are fluid-filled and normal in caliber. There are prominent inflammatory changes present along the entire left hemicolon with findings suggestive of circumferential wall thickening extending from the splenic flexure to the proximal and mid sigmoid colon. The inferior mesenteric artery is identified and is very small in caliber, the vessels extending to the upper left colon and in particular are small in caliber, asymmetrically smaller in size than the right colon vascular supply. The appendix is not visualized. ABDOMINAL WALL: No significant hernia is appreciated. LYMPH NODES: No pathologically enlarged lymph nodes are present.. VASCULAR: As noted above, the inferior mesenteric artery is very small in caliber, the vascular supply to the left colon are also differentially smaller vascular structures compared to the right. PELVIC VISCERA: The uterus is retroverted and unremarkable, no adnexal mass lesions are noted. OSSEOUS STRUCTURES: Incidental note is made of prominent hemangioma is present within T8 and T11, as well as within T3 and T4. Anterior wedging deformities are noted within the T10 and T11 vertebral bodies. Grade 2 anterolisthesis of L4 on L5 is present No aggressive osseous lesions are noted. IMPRESSION: 1. Generalized inflammatory changes involving the left hemicolon, with small caliber of the inferior mesenteric artery and vessels supplying the left hemicolon. Findings are suggestive of ischemic colitis. 2. Free fluid present predominantly in the left upper quadrant and extending to the dependent portion of the pelvis. 3. Left hilar lymphadenopathy. Also noted is a soft tissue pulmonary mass in the left lung base. The findings are superimposed on extensive chronic lung disease findings.
[2017-10-06 13:56] LABS: ABSOLUTE BASOPHIL COUNT 0 /CUMM (0.0-0.2); ABSOLUTE EOSINOPHIL COUNT 0.1 /CUMM (0.0-0.7); ABSOLUTE GRANULOCYTE CT 15.9 /CUMM (1.4-6.5); ABSOLUTE LYMPH COUNT 2.3 /CUMM (1.2-3.4); ABSOLUTE MONOCYTE COUNT 0.7 /CUMM (0.10-0.60); BASOPHIL % 0.1 % (0.0-2.0); EOSINOPHIL % 0.7 % (0-5); HEMATOCRIT 35.5 % (37-47); MEAN CORPUSCULAR HGB 31.2 PG (27.0-31.0); MEAN CORPUSCULAR VOLUME 91.7 FL (81.0-99.0); MEAN PLATELET VOLUME 7.1 FL (7.4-10.4); PLATELET COUNT 216 /CUMM (130-400); RBC DISTRIBUTION WIDTH 14.2 % (11.5-14.5); RED BLOOD CELL CT 3.87 /CUMM (4.20-5.40)
[2017-10-06 14:06] LABS: GRANULOCYTE % 83.5 % (42.2-75.2)
[2017-10-06 14:34] VITALS: BP 150/72
[2017-10-06 22:45] VITALS: BP 112/70
[2017-10-07 06:57] VITALS: BP 122/80
--- NOTE | 2017-10-07 07:10 | PN- Housestaff ---
See Addendum Subjective Follow-up For: sepsis ischemic colitis Subjective: patient has no complaints at this time, no abdominal pain, no more episodes of hematochezia, melena, dyuria, no dysuria, fevers, chills, or cough Review of Systems Constitutional: Reports: see HPI. Objective Last 24 Hrs of Vital Signs/I&O Vital Signs Date Time Temp Pulse Resp B/P B/P Pulse O2 O2 Flow FiO2 Mean Ox Delivery Rate 10/07 0657 97.6 70 20 122/80 93 Room Air 10/07 0000 Room Air 10/06 2245 98.1 60 21 112/70 98 Room Air 10/06 2000 Room Air 10/06 1434 97.7 84 22 150/72 95 Room Air 10/06 1220 98.2 80 18 155/75 95 Room Air Intake & Output 10/07 1600 10/07 0800 10/07 0000 Intake Total 320 700 Output Total 400 600 Balance -80 100 Intake, IV 120 Intake, Oral 200 700 Output, Urine 400 600 Physical Exam General Appearance: Alert, Oriented X3, Cooperative, No Acute Distress Cardiovascular: Regular Rate, Normal S1, Normal S2, No Murmurs Lungs: bibasilar crackles Abdomen: Normal Bowel Sounds, Soft, No Tenderness, No Masses, diffuse mild tenderness only on deep palpation Extremities: No Clubbing, No Cyanosis, No Edema, Normal Pulses, No Tenderness/ Swelling Current Medications: Current Medications Sig/Traci Start time Last Medication Dose Route Stop Time Status Admin Acetaminophen 650 MG Q8P PRN 10/05 1745 AC 10/05 PO 1842 Acetaminophen 1,000 MG BID PRN 10/05 1745 AC 10/05 IV 2252 Albuterol Sulfate 3 ML Q4H PRN 10/05 1800 AC INH Aspirin Buffered 81 MG DAILY 10/06 1000 AC 10/07 PO 0834 Atorvastatin Calcium 40 MG 1700 10/06 1700 AC 10/06 PO 1717 Ceftazidime 1,000 MG Q8 10/05 2200 AC 10/07 IV 0606 Ibuprofen 400 MG ONCE ONE 10/06 2014 DC 10/06 PO 10/06 Melatonin 5 MG ONCE ONE 10/06 2315 DC 10/06 PO 10/06 231 2335 Melatonin 5 MG AT BEDTIME PRN 10/06 2014 AC 10/06 PO 202 Metronidazole 500 MG IQ8 10/06 1600 AC 10/07 N/A 1 UNIT IV 0834 Patient Medication 1 ED ONE ONE 10/07 1015 DC Teaching ED 10/07 1016 Sodium Chloride 1,000 ML Q6H 10/06 1000 DC 10/06 IV 10/06 1559 1020 Tiotropium [place] 1 PUF DAILY 10/06 1000 AC 10/07 INH 1001 Vancomycin HCl 1,000 MG 1300 10/06 1300 DC 10/06 Dextrose/Water 250 ML IV 1426 Last 24 Hrs of Lab/David Results Last 24 Hrs of Labs/Mics: Laboratory Tests 10/07/17 0810: Anion Gap 13, Estimated GFR > 60, BUN/Creatinine Ratio 14.3, CBC w Diff NO MAN DIFF REQ, RBC 3.69 L, MCV 92.5, MCH 31.0, MCHC 33.5, RDW 14.5, MPV 7.7, Gran % 78.1 H, Lymphocytes % 14.0 L, Monocytes % 6.5, Eosinophils % 1.0, Basophils % 0.4, Absolute Granulocytes 10.7 H, Absolute Lymphocytes 1.9, Absolute Monocytes 0.9 H, Absolute Eosinophils 0.1, Absolute Basophils 0 10/06/17 1348: CBC w Diff NO MAN DIFF REQ, RBC 3.87 L, MCV 91.7, MCH 31.2 H, MCHC 34.0, RDW 14.2, MPV 7.1 L, Gran % 83.5 H, Lymphocytes % 11.9 L, Monocytes % 3.8, Eosinophils % 0.7, Basophils % 0.1, Absolute Granulocytes 15.9 H, Absolute Lymphocytes 2.3, Absolute Monocytes 0.7 H, Absolute Eosinophils 0.1, Absolute Basophils 0 Microbiology 10/07 1024 STOOL: Cryptosporidium Antigen - COLB 10/07 1024 STOOL: Giardia Antigen (DAVID) - COLB 10/07 1024 STOOL: Clostridium difficile Toxin A & B - COLB 10/07 1024 STOOL: Stool Culture - COLB Assessment/Plan Assessment: 86 year old woman w/ a PMHx of stable meningioma, HTN, HLD, COPD (not on oxygen) presented with altered mental status and hypothermia who then had several episodes of bright red blood per rectum after resolution of altered mentation and hypothermia. Altered mental status: Altered mentation with elevated lactic acid and hypothermia concerning for sepsis Broad spectrum antibiotics were started with vancomycin and ceftazidime CT head revealed numerous chronic small vessel ischemic changes within theperiventricular white matter. No evidence of acute territorial infarct or hemorrhage. A dural based right frontal convexity mass consistent with the patient's known meningioma remains essentially unchanged. Patient reports some abdominal pain and cough yesterday, denies dysuria Blood and urine cultures were negative Urinalysis suggestive of infection but with many epithelial cells Hypothermia improved with jocelyne hugger and mentation normalized after IVFs and antibiotics 1. Generalized inflammatory changes involving the left hemicolon, with small caliber of the inferior mesenteric artery and vessels supplying the left hemicolon. Findings are suggestive of ischemic colitis. 2. Free fluid present predominantly in the left upper quadrant and extending to the dependent portion of the pelvis. 3. Left hilar lymphadenopathy. Also noted is a soft tissue pulmonary mass in the left lung base. The findings are superimposed on extensive chronic lung disease findings. Antibiotics changed to ceftazidime and metronidazole for better anaerobic coverage given CT findings consistent with colitis on CT for possible bacterial translocation Consult ID regarding antibiotics source of probably sepsis on presentation GI bleed: bright red blood per rectum likely ischemic versus infectious colitis CT consistent with ischemic colitis Continue antibiotics Type and screen Intravascular volume resuscitation with normal saline CBC stable Send stool culture, ova + parasites C. diff with next BM for possible infectious colitis Advance diet as tolerated HTN: Can resume lisinopril and norvasc if patient becomes hypertensive Currently held and normotensive Full liquid diet DVT ppx-mechanical ALPs only with GI bleed DNR/DNI Problem List: 1. Hypertension 2. Hyperlipidemia 3. Hypothermia 4. Sepsis 5. Ischemic colitis Pain Ratin Pain Location: n/a Pain Goal: Pain 4 or less Pain Plan: prn Tomorrow's Labs & Rationales: cbc, bep
[2017-10-07 09:05] LABS: ABSOLUTE BASOPHIL COUNT 0 /CUMM (0.0-0.2); ABSOLUTE EOSINOPHIL COUNT 0.1 /CUMM (0.0-0.7); ABSOLUTE GRANULOCYTE CT 10.7 /CUMM (1.4-6.5); ABSOLUTE LYMPH COUNT 1.9 /CUMM (1.2-3.4); ABSOLUTE MONOCYTE COUNT 0.9 /CUMM (0.10-0.60); BASOPHIL % 0.4 % (0.0-2.0); GRANULOCYTE % 78.1 % (42.2-75.2); HEMATOCRIT 34.1 % (37-47); MEAN CORPUSCULAR HGB CONC 33.5 G/DL (33.0-37.0); MEAN CORPUSCULAR VOLUME 92.5 FL (81.0-99.0); MEAN PLATELET VOLUME 7.7 FL (7.4-10.4); PLATELET COUNT 201 /CUMM (130-400); RBC DISTRIBUTION WIDTH 14.5 % (11.5-14.5); RED BLOOD CELL CT 3.69 /CUMM (4.20-5.40); WHITE BLOOD CELL COUNT 13.7 /CUMM (4.8-10.8)
[2017-10-07 13:52] VITALS: BP 126/88
--- NOTE | 2017-10-07 14:03 | Cons- Pulmonary ---
General Information and HPI Consulting Request Date of Consult: 10/07/17 Requested By: med team History of Present Illness: Ms Huerta is a 86 year old woman w/ a PMHx of stable meningioma, HTN, HLD, COPD( not on oxygen) was brought in by the AMS, when she was found to have an acute change in mentation the am of presentation. Initial history as noted in the chart She was last known to be normal was in the am, when she had a usual day with having coffee, and had a normal conversation with the , and her relatives over the phone. Around the later part of am, when her returned from running a daily chores after an hour, she was found in her bed, saying "she feels hot", and was removing her clothes. She was reported to be confused, and didnt know where she was at that time. The episode lasted for less than 30 minutes, when the EMS arrived and was found to have had low blood pressure SBP~ 80s. She also reported several episodes of diarrhea that started around the same time, and continued to have several episodes of diarrhea since the am. She did not have any loss of consciousness, loss of bladder or bowel function, neurological deficits, seizures. She did not have any cough, fever, chills, sorethoat, vision changes in the last few days. She reported taking a new medication, prevogen OTC for memory enhacement that was srarted a few days ago. No other changes in medications, including abx use in the last few weeks. No hot/cold intolerance, no prednisone use, no ivda, or opiate use, benzo use, no neck pain/stiffness, no shortness of breath, palpitations or CP. Reported remote tx of arthritis w/ NSAIDs. No knee pain/ erythema/rashes. No jaundice, no recent changes in diet, travel, or sick contacts. In terms history Since she came in she was noted to have bloody diarrhea and CT scan of the chest abdomen and pelvis was done. And the CT abdomen is suggestive of ischemic bowel and now she is slightly better after she has been aggressively treated. The CAT scan did show severe emphysema which has been present for years, a left lower lobe opacity/mass with left-sided lymphadenopathy and hence this consult. No fever today no cough or sputum. Allergies/Medications Allergies: Coded Allergies: NO KNOWN ALLERGIES (08/25/16) NKA per Infusion Center nurse Ana. -- Lolly 07/28/14 Home Med List: Amlodipine Besylate 5 MG TABLET 1 TAB PO DAILY hypertension (Reported) Aspirin (Ecotrin*) 81 MG TABLET.DR 1 TAB PO DAILY heart heatlh (Reported) Lisinopril 20 MG TABLET 1 TAB PO DAILY high blood pressure (Reported) Simvastatin (Simvastatin*) 40 MG TABLET 1 TAB PO QPM heart health (Reported) Umeclidinium Brm/Vilanterol Tr (Anoro Ellipta 62.5-25 Mcg INH) 62.5 MCG-25 MCG/ ACTUATION BLST.W.DEV 1 PUFF INH BID COPD (Reported) Review of Systems Comments Review of Systems Constitutional: Reports: see HPI. Denies: chills, fever, weakness. EENTM: Denies: blurred vision, visual changes. Cardiovascular: Denies: chest pain, edema, orthopena, palpitations. Respiratory: Denies: orthopnea, short of breath. GI: Reports: diarrhea, nausea. Denies: abdominal pain, melena, vomiting. Genitourinary: Denies: dysuria. Musculoskeletal: Denies: back pain. Skin: Denies: change in skin color. Neurological/Psychological: Denies: anxiety. Hematologic/Endocrine: Denies: see HPI, bleeding. Immunologic/Allergic: Denies: lymphadenopathy. 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 Home Who Do You Live With? spouse Services at Home: None Smoking Status: Former Smoker ETOH Use: denies use Illicit Drug Use: denies illicit drug use Functional Ability ADLs Independent: dressing, eating, toileting, bathing. Ambulation: independent IADLs Independent: shopping, housework, finances, food prep, telephone, transportation , medication admin. Exam & Diagnostic Data Last 24 Hrs of Vital Signs/I&O Vital Signs Date Time Temp Pulse Resp B/P B/P Pulse O2 O2 Flow FiO2 Mean Ox Delivery Rate 10/07 0657 97.6 70 20 122/80 93 Room Air 10/07 0000 Room Air 10/06 2245 98.1 60 21 112/70 98 Room Air 10/06 2000 Room Air 10/06 1434 97.7 84 22 150/72 95 Room Air Intake & Output 10/07 1600 10/07 0800 10/07 0000 Intake Total 320 700 Output Total 400 600 Balance -80 100 Intake, IV 120 Intake, Oral 200 700 Output, Urine 400 600 Last 48 Hrs of Labs/David: Laboratory Tests 10/07/17 0810: Anion Gap 13, Estimated GFR > 60, BUN/Creatinine Ratio 14.3, CBC w Diff NO MAN DIFF REQ, RBC 3.69 L, MCV 92.5, MCH 31.0, MCHC 33.5, RDW 14.5, MPV 7.7, Gran % 78.1 H, Lymphocytes % 14.0 L, Monocytes % 6.5, Eosinophils % 1.0, Basophils % 0.4, Absolute Granulocytes 10.7 H, Absolute Lymphocytes 1.9, Absolute Monocytes 0.9 H, Absolute Eosinophils 0.1, Absolute Basophils 0 10/06/17 1348: CBC w Diff NO MAN DIFF REQ, RBC 3.87 L, MCV 91.7, MCH 31.2 H, MCHC 34.0, RDW 14.2, MPV 7.1 L, Gran % 83.5 H, Lymphocytes % 11.9 L, Monocytes % 3.8, Eosinophils % 0.7, Basophils % 0.1, Absolute Granulocytes 15.9 H, Absolute Lymphocytes 2.3, Absolute Monocytes 0.7 H, Absolute Eosinophils 0.1, Absolute Basophils 0 10/06/17 0545: Anion Gap 12, Estimated GFR > 60, BUN/Creatinine Ratio 27.1 H, Magnesium 1.7, Total Bilirubin 0.8, Direct Bilirubin 0.3, AST 33, ALT 26, Alkaline Phosphatase 23, Troponin I 0.06, Vne-D-Lprplfzclod Pept 433 H, Total Protein 5.7 L, Albumin 2.8 L, CBC w Diff MAN DIFF ORDERED, RBC 3.69 L, MCV 92.7, MCH 30.3, MCHC 32.7 L, RDW 14.4, MPV 7.2 L, Gran % 83.8 H, Lymphocytes % 11.8 L, Monocytes % 3.9, Eosinophils % 0.3, Basophils % 0.2, Absolute Granulocytes 15.0 H, Segmented Neutrophils 76 H, Absolute Lymphocytes 2.1, Lymphocytes 24, Absolute Monocytes 0.7 H, Absolute Eosinophils 0.1, Absolute Basophils 0, Platelet Estimate ADEQUATE, Hypochromic-Microcytic 1+, Poikilocytosis 1+, Ovalocytes 1+, Fld Total RBCs Counted 100 10/06/17 0500: Sodium Cancelled, Potassium Cancelled, Chloride Cancelled, Carbon Dioxide Cancelled, Anion Gap Cancelled, BUN Cancelled, Creatinine Cancelled, BUN/ Creatinine Ratio Cancelled, CBC w Diff Cancelled, WBC Cancelled, RBC Cancelled, Hgb Cancelled, Hct Cancelled, MCV Cancelled, MCH Cancelled, MCHC Cancelled, RDW Cancelled, Plt Count Cancelled, MPV Cancelled 10/06/17 0300: Troponin I Cancelled 10/05/172326: Troponin I 0.06 10/05/172322: Urine Opiates Screen < 100.00, Methadone Screen 40, Barbiturate Screen < 60, Ur Phencyclidine Scrn < 6.00, Amphetamines Screen < 100, U Benzodiazepines Scrn < 85, Urine Cocaine Screen < 50, Urine Cannabis Screen < 5.00 10/05/17 1852: Lactic Acid 2.0 10/05/17 1742: Methadone Screen Cancelled, Barbiturate Screen Cancelled, Ur Phencyclidine Scrn Cancelled, Amphetamines Screen Cancelled, U Benzodiazepines Scrn Cancelled, Urine Cocaine Screen Cancelled, Urine Cannabis Screen Cancelled 10/05/17 1531: Lactic Acid 2.2 H Microbiology 10/05 2322 URINE ROUT: Legionella Antigen - COMP 10/05 2322 URINE ROUT: Streptococcus pneumoniae Antigen (M - COMP Assessment/Plan Impression/Plan: General Appearance: Alert, Oriented X3, Cooperative, No Acute Distress Cardiovascular: Regular Rate, Normal S1, Normal S2, 2/6 murmur Lungs: bibasilar crackles, more in the left than the right more than the left and the right Abdomen: Normal Bowel Sounds, Soft, No Masses, minimal left sided tenderness to palpation, no rebound tenderness or guarding Extremities: No Clubbing, No Cyanosis, No Edema, Normal Pulses CT scan chest abdomen and pelvis, reviewed UNGS: A soft tissue mass is present in the posterior aspect of the left lung base measuring 1.1 cm in diameter, and associated linear densities are present in the immediate local region (series 4, 387/952). Interstitial pleural thickening is present in the bilateral lung bases. There are severe cystic/emphysematous changes present throughout the bilateral upper and lower lobes, as well as the right middle lobe, peripheral and central. There is a prominent area of soft tissue material measuring approximately 3.0 x 1.8 x 1.9 cm in size in the posterior margin of the first branch of the left main pulmonary trunk, this is soft tissue density by Hounsfield units suggestive of a conglomeration of lymph nodes, smaller lymph nodes are present in the immediate local region, however there is mass effect on the posterior aspect of the pulmonary trunk just proximal to the bifurcation with resultant narrowing of the vessel. Soft tissue is present surrounding the vascular structures in the left hilar region. Multiple prominent mediastinal lymph nodes are present, all are subcentimeter in short axis dimension however there are numerous of the lymph nodes. The largest in the subcarinal region measures 0.9 cm in short axis dimension. CARDIAC \\T\\ VESSELS: The cardiac structures are normal in appearance; a cardiac stent is present with coronary vascular calcifications. Mild atherosclerotic plaque is present within the thoracic aorta. The thyroid lobes are unremarkable. BRONCHIAL: No endobronchial findings are noted. IMPRESSION: 1. Generalized inflammatory changes involving the left hemicolon, with small caliber of the inferior mesenteric artery and vessels supplying the left hemicolon. Findings are suggestive of ischemic colitis. 2. Free fluid present predominantly in the left upper quadrant and extending to the dependent portion of the pelvis. 3. Left hilar lymphadenopathy. Also noted is a soft tissue pulmonary mass in the left lung base. The findings are superimposed on extensive chronic lung disease findings. Done on 10/06/17 / 3 IMPRESSION This is an 86-year-old lady with previous history of significant smoking, very severe emphysema noted in the CT scan since 2013, hypertension, hyperlipidemia, recent bloody diarrhea with CT scan suggestive of ischemic colitis now slowly improving, recent altered mental status upon admission, stable high right frontal meningioma which is 2.7 x 2.7 cm, moderate chronic white matter microangiopathy, now has the following issues * Subpleural lung nodule versus atelectasis in the left lower lobe with significant lymphadenopathy in the left hilar area with mechanical compression from the lymphadenopathy to one of the branches of the pulmonary artery, 3.01.8 nodes as well but they're all less than 1 cm, rule out malignancy. Differential diagnoses include carcinoma versus lymphoma versus other pathology which needs to be evaluated as outpatient * Very severe emphysema noted in the CT scan * Significant left-sided ischemic colitis with vascular disease as noted in the CT scan of the abdomen now with bloody diarrhea altered mental status mild lactic acidosis upon admission which is slowly improving with conservative therapy * No clinical evidence suggestive of significant pneumonia however the left lower lobe infiltrate may be related to an inflammatory process and patient is on appropriate antibiotics * Hypertension, hyperlipidemia, significant peripheral vascular disease * Altered thyroid function tests probably related to sick euthyroid state may need to be repeated in a month * Stable meningioma, in the frontal area with significant microangiopathy as noted in the head CT * Poor performance status with significant dyspnea on minimal exertion which makes her a poor candidate for any lung biopsy. RECOMMENDATION * Continue conservative therapy for ischemic colon * Check stool for culture overall parasite and C. difficile * Continue antibiotics and eventually can be switched to by mouth moxifloxacin or by mouth Cipro and Flagyl * As needed nebulizer * Continue Spiriva * Continue lipid lowering therapy and aspirin * Discussed with the patient and has been extensively about these findings. Patient would require a PET scan first and subsequently might be a candidate for endoscopic ultrasound-guided biopsy of these lymph nodes. Due to the fact that she has very severe emphysema and the CT scan she's not a candidate for any lung biopsy. * Patient also wishes conservative investigation and management to her poor performance status and she wishes to be DNR/DNI Consult Acknowledgment - Thank you for your consult request.
--- NOTE | 2017-10-07 16:39 | Cons- Infect Disease ---
General Information and HPI Consulting Request Date of Consult: 10/07/17 Requested By: Ayana Lincoln MD Reason for Consult: Ischemic colitis Source of Information: patient History of Present Illness: This is an 86-year-old woman with a history of hypertension, hyperlipidemia, COPD, treated with antibiotics one month prior to admission, though she is not sure why, in her usual state of health until the morning of admission when her found her to be confused and disoriented, with a fever and diarrhea, with a blood pressure in the 80s by EMS. On admission she was hypothermic, with a temperature of 93.7, and with a blood pressure of 106/58. Laboratory data revealed a white blood cell count of 9000, BUN/creatinine 22 and 0.8, lactic acid 2.9, with normal liver enzymes, INR 1.06. Urinalysis rare RBCs/10-[address] of the head revealed no acute process, with numerous chronic small vessel ischemic changes and with a dural based right frontal convexity mass consistent with her known meningioma. Chest x-ray revealed mild patchy airspace disease in the lateral mid and lower left lung field. She was placed on a AKSHAT hugger, with normalization of her temperatures. She was begun on Vancomycin and Ceftazidime for possible pneumonia. On October [address] of the chest, abdomen and pelvis which revealed inflammatory changes involving the left hemicolon, suggestive of ischemic colitis and left hilar lymphadenopathy, with a soft tissue pulmonary mass in the left lung base, and her antibiotics were changed to Ceftazidime and Flagyl. She has remained afebrile. Her white blood cell count increased to 18,000 on October 06 but has decreased today. She apparently had another liquid, bloody stool today but she otherwise feels improved. She notes some vague abdominal discomfort but has been eating without any problems. She denies any cough, shortness of breath or chest pain and has had no urinary symptoms. Allergies/Medications Allergies: Coded Allergies: NO KNOWN ALLERGIES (08/25/16) NKA per Infusion Center nurse Ana. -Jose Ambrocio 07/28/14 Home Med List: Amlodipine Besylate 5 MG TABLET 1 TAB PO DAILY hypertension (Reported) Aspirin (Ecotrin*) 81 MG TABLET.DR 1 TAB PO DAILY heart heatlh (Reported) Lisinopril 20 MG TABLET 1 TAB PO DAILY high blood pressure (Reported) Simvastatin (Simvastatin*) 40 MG TABLET 1 TAB PO QPM heart health (Reported) Umeclidinium Brm/Vilanterol Tr (Anoro Ellipta 62.5-25 Mcg INH) 62.5 MCG-25 MCG/ ACTUATION BLST.W.DEV 1 PUFF INH BID COPD (Reported) Past History Travel History Traveled to [place] past 21 day No Medical History Neurological: MENINGIOMA in the brain EENT: NONE Cardiovascular: hypertension, hyperlipidemia, HIGH CHOLESTEROL Respiratory: COPD Gastrointestinal: NONE Hepatic: NONE Renal: NONE Musculoskeletal: NONE Psychiatric: NONE Endocrine: POLYMYALGIA RHEUMATICA Blood Disorders: NONE Cancer(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 Home Who Do You Live With? spouse Services at Home: None Smoking Status: Former Smoker ETOH Use: denies use Illicit Drug Use: denies illicit drug use Functional Ability ADLs Independent: dressing, eating, toileting, bathing. Ambulation: independent IADLs Independent: shopping, housework, finances, food prep, telephone, transportation , medication admin. Review of Systems Review of Systems All Other Systems: Reviewed and Negative Exam & Diagnostic Data Last 24 Hrs of Vital Signs/I&O Vital Signs Date Time Temp Pulse Resp B/P B/P Pulse O2 O2 Flow FiO2 Mean Ox Delivery Rate 10/07 1352 98.6 64 20 126/88 95 10/07 0657 97.6 70 20 122/80 93 Room Air 10/07 0000 Room Air 10/06 2245 98.1 60 21 112/70 98 Room Air 10/06 2000 Room Air Intake & Output 10/07 1600 10/07 0800 10/07 0000 Intake Total 470 320 700 Output Total 400 600 Balance 470 -80 100 Intake, IV 110 120 Intake, Oral 360 200 700 Number 1 Bowel Movements Output, Urine 400 600 Physical Exam Other Physical Findings: Afebrile. She is awake and alert in no acute distress. Skin reveals no rash. HEENT negative. Neck is supple with no adenopathy. Lungs are clear. Heart regular rhythm with no murmur. Abdomen is soft, nontender with positive bowel sounds. Back no CVA tenderness. Extremities no cyanosis, clubbing or edema. Neuro is without focality. Last 24 Hours of Lab Results: Laboratory Tests 10/07 0810 Chemistry Sodium (137 - 145 mmol/L) 141 Potassium (3.5 - 5.1 mmol/L) 3.7 Chloride (98 - 107 mmol/L) 106 Carbon Dioxide (22 - 30 mmol/L) 22 Anion Gap (5 - 16) 13 BUN (7 - 17 mg/dL) 10 Creatinine (0.5 - 1.0 mg/dL) 0.7 Estimated GFR (>60 ml/min) > 60 BUN/Creatinine Ratio (7 - 25 %) 14.3 Hematology CBC w Diff NO MAN DIFF REQ WBC (4.8 - 10.8 /CUMM) 13.7 H RBC (4.20 - 5.40 /CUMM) 3.69 L Hgb (12.0 - 16.0 G/DL) 11.4 L Hct (37 - 47 %) 34.1 L MCV (81.0 - 99.0 FL) 92.5 MCH (27.0 - 31.0 PG) 31.0 MCHC (33.0 - 37.0 G/DL) 33.5 RDW (11.5 - 14.5 %) 14.5 Plt Count (130 - 400 /CUMM) 201 MPV (7.4 - 10.4 FL) 7.7 Gran % (42.2 - 75.2 %) 78.1 H Lymphocytes % (20.5 - 51.1 %) 14.0 L Monocytes % (1.7 - 9.3 %) 6.5 Eosinophils % (0 - 5 %) 1.0 Basophils % (0.0 - 2.0 %) 0.4 Absolute Granulocytes (1.4 - 6.5 /CUMM) 10.7 H Absolute Lymphocytes (1.2 - 3.4 /CUMM) 1.9 Absolute Monocytes (0.10 - 0.60 /CUMM) 0.9 H Absolute Eosinophils (0.0 - 0.7 /CUMM) 0.1 Absolute Basophils (0.0 - 0.2 /CUMM) 0 Last 24 Hours of David Results: Blood cultures 2 October 05 negative Rapid flu swab October 05 negative Urine culture October 05 negative Stool C. difficile October 05 negative Stool culture October 05 mixed adama Urine strep pneumo antigen and Legionella antigen October 05 negative Diagnostic Data Recent Imaging Findings: Chest x-ray October 05 revealed mild patchy airspace disease in the lateral mid and lower left lung field. CT of the chest, abdomen and pelvis October 06 revealed inflammatory changes involving the left hemicolon, suggestive of ischemic colitis, and left hilar lymphadenopathy, with a soft tissue pulmonary mass in the left lung base Chest x-ray October 06 revealed prominent central pulmonary vessels and interstitial markings, with patchy densities at both lung bases Assessment/Plan Assessment/Plan Impression: This is an 86-year-old woman with a history of hypertension, hyperlipidemia, COPD, treated with antibiotics one month prior to admission, admitted on October 05 after she was found to be confused and disoriented, with a fever and bloody diarrhea, with a blood pressure in the 80s by EMS, found on admission to be hypothermic with a normal white blood cell count, with a CT of the abdomen and pelvis revealing inflammation of the left colon suggestive of ischemic colitis. Her presentation is consistent with ischemic colitis, with hypotension and bloody stools and with the CT of the abdomen revealing asymmetrically small caliber inferior mesenteric artery and vessel supplying the left hemicolon, felt to be suggestive of ischemic colitis. C. difficile is possible given the report of recent antibiotics, though her rapid improvement and specific CT findings are more suggestive of ischemic colitis. Suggestion: 1. Repeat stool for C. difficile 2. Continue Ceftazidime and Flagyl Consult Acknowledgment - Thank you for your consult request.
[2017-10-07 22:37] VITALS: BP 140/80
[2017-10-08 06:20] VITALS: BP 148/76
--- NOTE | 2017-10-08 07:02 | PN- Housestaff ---
Autumn MARTÍNEZ,Roland 10/08/17 0701: Subjective Follow-up For: Ischemic colitis Subjective: minimal abdominal pain on deep palpation no further episodes of bloody BMs tolerating diet well Review of Systems Constitutional: Reports: see HPI. Objective Last 24 Hrs of Vital Signs/I&O Vital Signs Date Time Temp Pulse Resp B/P B/P Pulse O2 O2 Flow FiO2 Mean Ox Delivery Rate 10/08 1200 98.7 80 16 142/78 94 Room Air 10/08 0620 98.8 77 18 148/76 94 Room Air 10/07 2237 98.1 92 20 140/80 91 Room Air Intake & Output 10/08 1600 10/08 0800 10/08 0000 Intake Total 220 230 590 Output Total Balance 220 230 590 Intake, IV 100 30 110 Intake, Oral 120 200 480 Number 2 Bowel Movements Patient 63.276 kg 63.276 kg Weight Weight Bed scale Measurement Method Physical Exam General Appearance: Alert, Oriented X3, Cooperative, No Acute Distress Cardiovascular: Regular Rate, Normal S1, Normal S2, No Murmurs Lungs: Clear to Auscultation, Normal Air Movement Abdomen: Normal Bowel Sounds, Soft, No Masses, mild diffuse abdominal tenderness on deep palpation Extremities: No Clubbing, No Cyanosis, No Edema, Normal Pulses Current Medications: Current Medications Sig/Traci Start time Last Medication Dose Route Stop Time Status Admin Acetaminophen 650 MG Q8P PRN 10/05 1745 DCD 10/05 PO 1842 Acetaminophen 1,000 MG BID PRN 10/05 1745 DCD 10/05 IV 2252 Albuterol Sulfate 3 ML Q4H PRN 10/05 1800 DCD INH Aspirin Buffered 81 MG DAILY 10/06 1000 DCD 10/08 PO 1040 Atorvastatin Calcium 40 MG 1700 10/06 1700 DCD 10/07 PO 1658 Ceftazidime 1,000 MG Q8 10/05 2200 DCD 10/08 IV 0629 Melatonin 5 MG AT BEDTIME PRN 10/06 2015 DCD 10/07 PO 2141 Metronidazole 500 MG IQ8 10/06 1600 DCD 10/08 N/A 1 UNIT IV 0742 Tiotropium [place] 1 PUF DAILY 10/06 1000 DCD 10/08 INH 1040 Last 24 Hrs of Lab/David Results Last 24 Hrs of Labs/Mics: Laboratory Tests 10/08/17 0814: CBC w Diff NO MAN DIFF REQ, RBC 3.73 L, MCV 92.6, MCH 31.3 H, MCHC 33.8, RDW 14.4, MPV 7.6, Gran % 71.2, Lymphocytes % 18.6 L, Monocytes % 8.4, Eosinophils % 1.4, Basophils % 0.4, Absolute Granulocytes 8.2 H, Absolute Lymphocytes 2.1, Absolute Monocytes 1.0 H, Absolute Eosinophils 0.2, Absolute Basophils 0 Microbiology 10/07 2049 STOOL: Cryptosporidium Antigen - COMP 10/07 2049 STOOL: Giardia Antigen (DAVID) - COMP 10/07 2049 STOOL: Clostridium difficile Toxin A & B - COMP 10/07 1911 STOOL: Clostridium difficile Toxin A & B - CAN Cancelled: DUPLICATE Assessment/Plan Assessment: 86 year old woman w/ a PMHx of stable meningioma, HTN, HLD, COPD (not on oxygen) presented with altered mental status and hypothermia who then had several episodes of bright red blood per rectum after resolution of altered mentation and hypothermia. Altered mental status: resolved Altered mentation with elevated lactic acid and hypothermia concerning for sepsis Broad spectrum antibiotics were started with vancomycin and ceftazidime Blood and urine cultures were negative CT chest/abdomen/pelvis 1. Generalized inflammatory changes involving the left hemicolon, with small caliber of the inferior mesenteric artery and vessels supplying the left hemicolon. Findings are suggestive of ischemic colitis. 2. Free fluid present predominantly in the left upper quadrant and extending to the dependent portion of the pelvis. 3. Left hilar lymphadenopathy. Also noted is a soft tissue pulmonary mass in the left lung base. The findings are superimposed on extensive chronic lung disease findings. Left hilar lymphadenopathy: Pulmonary consulted regarding findings on CT Patient has history of smoking and emphysema Lymphadenopathy could be further evaluated by transbronchial biopsy as an outpatient Follow up with Dr. Hein GI bleed: Bright red blood per rectum likely ischemic versus infectious colitis CT consistent with ischemic colitis Type and screen, CBC stable Intravascular volume resuscitation with normal saline Stool studies and C. diff negative x 2 Tolerated advanced diet Infectious disease consulted Antibiotics discontinued on discharge HTN: Can resume lisinopril Hold norvasc on discharge Follow up with PCP Heart healthy diet DVT ppx-mechanical ALPs only with GI bleed DNR/DNI Problem List: 1. TIA (transient ischemic attack) 2. Hypertension 3. Hyperlipidemia 4. Sepsis 5. Ischemic colitis Pain Ratin Pain Location: n/a Pain Goal: Pain 4 or less Pain Plan: prn Tomorrow's Labs & Rationales: none Salazar MARTÍNEZAyana 10/08/17 1331: Attending MD Review Statement Attending Statement Attending MD Statement: examined this patient, discuss w/resident/PA/METAL CUTTER, agreed w/resident/PA/METAL CUTTER, reviewed EMR data (avail) Attending Assessment/Plan: 86F PMH TIA, HTN, HL, and COPD admitted overnight after being found agitated, confused, febrile by at home. Patient was in her usual state of health on the morning of admission, suddenly became agitated, complained of being hot, then lethargic, in ED was found to have temp of 92.7 with BP 106/50, placed on warming blanket and IV fluids, and mental status and temp slowly returned to normal, placed on Vancomycin and Ceftazidime in ED, found to have WBC 17.9, lactate 2.9, normal renal function. Patient is back to her baseline today. She has no complaints and feels well. No cough or SOB. Repeat CXR shows evidence of bilateral lower lobe pneumonia, left lower lobe mass and left hilar lymphadenopathy. CT abdomen shows ischemic colitis. 1. Sepsis 2. Hypothermia 3. Bilateral lower lobe pneumonia 4. Hematochezia 5. Ischemic colitis 6. Left lower lobe lung mass Plan - Will speak with ID and pulmonary about discharge, likely today or tomorrow morning - Continue Ceftazidime and Flagyl, Cipro/Flagyl on discharge - Obtain ID and pulmonary consults - Follow blood, urine, sputum cultures - Continue home medications - DVT PPx
[2017-10-08 09:29] LABS: ABSOLUTE BASOPHIL COUNT 0 /CUMM (0.0-0.2); ABSOLUTE EOSINOPHIL COUNT 0.2 /CUMM (0.0-0.7); ABSOLUTE GRANULOCYTE CT 8.2 /CUMM (1.4-6.5); ABSOLUTE LYMPH COUNT 2.1 /CUMM (1.2-3.4); BASOPHIL % 0.4 % (0.0-2.0); EOSINOPHIL % 1.4 % (0-5); GRANULOCYTE % 71.2 % (42.2-75.2); HEMATOCRIT 34.6 % (37-47); MEAN CORPUSCULAR HGB 31.3 PG (27.0-31.0); MEAN CORPUSCULAR HGB CONC 33.8 G/DL (33.0-37.0); MEAN CORPUSCULAR VOLUME 92.6 FL (81.0-99.0); MEAN PLATELET VOLUME 7.6 FL (7.4-10.4); PLATELET COUNT 233 /CUMM (130-400); RBC DISTRIBUTION WIDTH 14.4 % (11.5-14.5); RED BLOOD CELL CT 3.73 /CUMM (4.20-5.40); WHITE BLOOD CELL COUNT 11.5 /CUMM (4.8-10.8)
[2017-10-08 12:00] VITALS: BP 142/78
--- NOTE | 2017-10-08 13:46 | PN- Pulmonary ---
Subjective HPI/Critical Care Issues: Doing better No abd pain Objective Current Medications: Current Medications Sig/Traci Start time Last Medication Dose Route Stop Time Status Admin Acetaminophen 650 MG Q8P PRN 10/05 1745 AC 10/05 PO 1842 Acetaminophen 1,000 MG BID PRN 10/05 1745 AC 10/05 IV 2252 Albuterol Sulfate 3 ML Q4H PRN 10/05 1800 AC INH Aspirin Buffered 81 MG DAILY 10/06 1000 AC 10/08 PO 1040 Atorvastatin Calcium 40 MG 1700 10/06 1700 AC 10/07 PO 1658 Ceftazidime 1,000 MG Q8 10/05 2200 AC 10/08 IV 0629 Melatonin 5 MG AT BEDTIME PRN 10/06 2015 AC 10/07 PO 2141 Metronidazole 500 MG IQ8 10/06 1600 AC 10/08 N/A 1 UNIT IV 0742 Tiotropium [place] 1 PUF DAILY 10/06 1000 AC 10/08 INH 1040 Vital Signs & I&O Last 24 Hrs of Vitals and I&O: Vital Signs Date Time Temp Pulse Resp B/P B/P Pulse O2 O2 Flow FiO2 Mean Ox Delivery Rate 10/08 0620 98.8 77 18 148/76 94 Room Air 10/07 2237 98.1 92 20 140/80 91 Room Air 10/07 1352 98.6 64 20 126/88 95 Intake & Output 10/08 1600 10/08 0800 10/08 0000 Intake Total 220 230 590 Output Total Balance 220 230 590 Intake, IV 100 30 110 Intake, Oral 120 200 480 Number 2 Bowel Movements Patient 140 lb 140 lb Weight Weight Bed scale Measurement Method Impression/Plan Impression/Plan Impression/Plan: General Appearance: Alert, Oriented X3, Cooperative, No Acute Distress Cardiovascular: Regular Rate, Normal S1, Normal S2, 2/6 murmur Lungs: bibasilar crackles, more in the left than the right more than the left and the right Abdomen: Normal Bowel Sounds, Soft, No Masses, minimal left sided tenderness to palpation, no rebound tenderness or guarding Extremities: No Clubbing, No Cyanosis, No Edema, Normal Pulses CT scan chest abdomen and pelvis, reviewed UNGS: A soft tissue mass is present in the posterior aspect of the left lung base measuring 1.1 cm in diameter, and associated linear densities are present in the immediate local region (series 4, 429/136). Interstitial pleural thickening is present in the bilateral lung bases. There are severe cystic/emphysematous changes present throughout the bilateral upper and lower lobes, as well as the right middle lobe, peripheral and central. There is a prominent area of soft tissue material measuring approximately 3.0 x 1.8 x 1.9 cm in size in the posterior margin of the first branch of the left main pulmonary trunk, this is soft tissue density by Hounsfield units suggestive of a conglomeration of lymph nodes, smaller lymph nodes are present in the immediate local region, however there is mass effect on the posterior aspect of the pulmonary trunk just proximal to the bifurcation with resultant narrowing of the vessel. Soft tissue is present surrounding the vascular structures in the left hilar region. Multiple prominent mediastinal lymph nodes are present, all are subcentimeter in short axis dimension however there are numerous of the lymph nodes. The largest in the subcarinal region measures 0.9 cm in short axis dimension. CARDIAC \T\ VESSELS: The cardiac structures are normal in appearance; a cardiac stent is present with coronary vascular calcifications. Mild atherosclerotic plaque is present within the thoracic aorta. The thyroid lobes are unremarkable. BRONCHIAL: No endobronchial findings are noted. IMPRESSION: 1. Generalized inflammatory changes involving the left hemicolon, with small caliber of the inferior mesenteric artery and vessels supplying the left hemicolon. Findings are suggestive of ischemic colitis. 2. Free fluid present predominantly in the left upper quadrant and extending to the dependent portion of the pelvis. 3. Left hilar lymphadenopathy. Also noted is a soft tissue pulmonary mass in the left lung base. The findings are superimposed on extensive chronic lung disease findings. Done on 10/06/17 / 1253 IMPRESSION This is an 86-year-old lady with previous history of significant smoking, very severe emphysema noted in the CT scan since 2013, hypertension, hyperlipidemia, recent bloody diarrhea with CT scan suggestive of ischemic colitis now slowly improving, recent altered mental status upon admission, stable high right frontal meningioma which is 2.7 x 2.7 cm, moderate chronic white matter microangiopathy, now has the following issues * Subpleural lung nodule versus atelectasis in the left lower lobe with significant lymphadenopathy in the left hilar area with mechanical compression from the lymphadenopathy to one of the branches of the pulmonary artery, 3.01.8 nodes as well but they're all less than 1 cm, rule out malignancy. Differential diagnoses include carcinoma versus lymphoma versus other pathology which needs to be evaluated as outpatient * Very severe emphysema noted in the CT scan * Significant left-sided ischemic colitis with vascular disease as noted in the CT scan of the abdomen now with bloody diarrhea altered mental status mild lactic acidosis upon admission which is slowly improving with conservative therapy * No clinical evidence suggestive of significant pneumonia however the left lower lobe infiltrate may be related to an inflammatory process and patient is on appropriate antibiotics * Hypertension, hyperlipidemia, significant peripheral vascular disease * Altered thyroid function tests probably related to sick euthyroid state may need to be repeated in a month * Stable meningioma, in the frontal area with significant microangiopathy as noted in the head CT * Poor performance status with significant dyspnea on minimal exertion which makes her a poor candidate for any lung biopsy. RECOMMENDATION * Continue conservative therapy for ischemic colon * abx per id * As needed nebulizer * Continue Spiriva * Continue lipid lowering therapy and aspirin * Discussed with the patient and has been extensively about these findings. Patient would require a PET scan first and subsequently might be a candidate for endoscopic ultrasound-guided biopsy of these lymph nodes. Due to the fact that she has very severe emphysema and the CT scan she's not a candidate for any lung biopsy. * Patient also wishes conservative investigation and management to her poor performance status and she wishes to be DNR/DNI
--- NOTE | 2017-10-08 13:59 | Patient Discharge Instructions ---
Discharge Instructions General Discharge Information You were seen/treated for: ischemic colitis Special Instructions: Follow up with your primary care physician within one week of discharge Acute Coronary Syndrome Inclusion Criteria At DC or during hospital stay patient has or had the following: ACS DIAGNOSIS No Discharge Core Measures Meds if any: Prescribed or Continued at Discharge Meds if any: NOT Prescribed or Continued at Discharge Congestive Heart Failure Inclusion Criteria At DC or during hospital stay patient has or had the following: CHF DIAGNOSIS No Discharge Core Measures Meds if any: Prescribed or Continued at Discharge Meds if any: NOT Prescribed or Continued at Discharge Cerebrovascular accident Inclusion Criteria At DC or during hospital stay patient has or had the following: CVA/TIA Diagnosis No Discharge Core Measures Meds if any: Prescribed or Continued at Discharge Meds if any: NOT Prescribed or Continued at Discharge Venous thromboembolism Inclusion Criteria VTE Diagnosis No VTE Type NONE VTE Confirmed by (Test) NONE Discharge Core Measures - Per Current guidelines, there needs to be overlap - treatment for the first 5 days of Warfarin therapy. - If discharged on Warfarin prior to 5 days of - overlap therapy, the patient will need to be - assessed for post discharge needs including - *Post discharge parental anticoagulation - *Warfarin and/or parental anticoagulation education - *Follow up date to check INR post discharge At least 5 days overlap therapy as Inpatient No Meds if any: Prescribed or Continued at Discharge Note: Overlap Therapy is Warfarin and Anticoagulant Meds if any: NOT Prescribed or Continued at Discharge
--- NOTE | 2017-10-08 14:00 | Discharge Summary ---
Visit Information Visit Dates Admission Date: 10/05/17 Discharge Date: 10/08/17 Hospital Course Course Attending Physician: Ayana Lincoln MD Primary Care Physician: Guru Buck MD Hospital Course: 86 year old female with a past medical history significant for HTN, HLD, COPD, stable meningioma and TIA was admitted with an altered mental status, hypothermia, hypotension, and an elevated lactic acid. CT of the head was negative for any acute hemorrhage or territorial infarction. She was volume resuscitated with crystalloids and treated with broad spectrum antibiotics for presumed sepsis. Her mental status improved the morning after admission but she developed left sided abdominal pain and bloody diarrhea. She had CT imaging done of the chest abdomen and pelvis performed to identify the source of presumed sepsis. Imaging revealed inflammation of the left colon suggestive of ischemic colitis but no focal source of infection. Blood and urine cultures were negative. Antibiotic coverage was changed to ceftazidime and metronidazole to prevent bacterial translocation given the colitis. C. difficile and stool studies were negative for infectious causes of colitis. Her CBC was stable. She tolerated an advanced diet without any further episodes of bloody diarrhea and was discharged off antibiotics in consultation with infectious disease. She was advised to return to the emergency department for any abdominal pain, fever, or further bleeding. Her CT of the chest revealed a left sided mass with hilar lymphadenopathy, for which pulmonology was consulted. The patient had a significant history of smoking and emphysema. The differential includes lymphoma and lung cancer which could be evaluated by transbronchial biopsy and further work up was deferred to outpatient with Dr. Hein. Her lisinopril was resumed but amlodipine held at the time of discharge to avoid hypotension. Please follow up with Dr. Buck regarding antihypertensive medication management. Allergies: Coded Allergies: NO KNOWN ALLERGIES (08/25/16) NKA per Infusion Center nurse Ana. -- Lolly 07/28/14 Pertinent Lab Results: CT chest/abdomen/pelvis 1. Generalized inflammatory changes involving the left hemicolon, with small caliber of the inferior mesenteric artery and vessels supplying the left hemicolon. Findings are suggestive of ischemic colitis. 2. Free fluid present predominantly in the left upper quadrant and extending to the dependent portion of the pelvis. 3. Left hilar lymphadenopathy. Also noted is a soft tissue pulmonary mass in the left lung base. The findings are superimposed on extensive chronic lung disease findings. Disposition Summary Disposition Principal Diagnosis: Ischemic colitis Left lung lower lobe mass with hilar lymphadenopathy Hypothermia Additional Diagnosis: Hypertension Hyperlipidemia COPD TIA Discharge Disposition: home or self care Discharge Instructions General Discharge Information Code Status: Do Not Resucitate/Intubat Patient's Diet: Heart healthy diet Patient's Activity: No limitations, as tolerated Follow-Up Instructions/Appts: Please follow up with your primary care physican, Dr. Buck, within 1-2 weeks of discharge. Please follow up with your manufacturing process engineer, Dr. Hein, within 1-2 weeks of discharge. Medications at Discharge Discharge Medications: Stop taking the following medications: Amlodipine Besylate (Amlodipine Besylate) 5 MG TABLET ORAL DAILY Qty = 90 Continue taking these medications: Lisinopril (Lisinopril) 20 MG TABLET 1 Tablet ORAL DAILY Comments: NOT ADMINISTERED IN HOSPITAL Simvastatin (Simvastatin*) 40 MG TABLET 1 Tablet ORAL Every night Comments: NOT ADMINISTERED IN HOSPITAL Aspirin (Ecotrin*) 81 MG TABLET.DR 1 Tablet ORAL DAILY Comments: Last Taken: 10/08/17 Time: 1040 Umeclidinium Brm/Vilanterol Tr (Anoro Ellipta 62.5-25 Mcg INH) 62.5 MCG-25 MCG/ ACTUATION BLST.W.DEV 1 PUFF Inhale through mouth TWICE DAILY Qty = 60 Comments: NOT ADMINISTERED IN HOSPITAL Copies To: Heber MARTÍNEZ,Guru Hein MD,Beto Mondragon MD Review Statement Documenting Attending: Ayana Lincoln MD, MD Review Statement Documenting Attending: Ayana Lincoln MD
== END 2017-10-08 14:58 | DRG 394 ==
LOC: ERH 12:29 → 2NA 16:37 → ERHI 16:37 → EDBEDREQ 21:05 → ERHI 10-06 08:19 → ENRESERV 10-06 12:51 → CANRESERV 10-06 12:51 → ENRESERV 10-06 13:26 → ENTRNSPT 10-06 13:59 → EDTRNSPTSTS 10-06 14:02 → EDTRNSPT 10-06 14:02 → 2NA 10-06 14:19 → CMPTRNSPT 10-06 14:25 → ENPENDDIS 10-08 14:38 → 2NA 10-08 14:58
PROVIDERS: Internal Medicine; Internal Medicine Hematology & Oncology; Physician Assistant Medical
DX: K55.9 Vascular disorder of intestine, unspecified (principal); E87.2 Acidosis; I95.9 Hypotension, unspecified; T68.XXXA Hypothermia, initial encounter; J44.9 Chronic obstructive pulmonary disease, unspecified; J43.9 Emphysema, unspecified; K92.1 Melena; D32.0 Benign neoplasm of cerebral meninges; M35.3 Polymyalgia rheumatica; I10 Essential (primary) hypertension; E78.5 Hyperlipidemia, unspecified; R41.82 Altered mental status, unspecified; Z87.891 Personal history of nicotine dependence; Z79.82 Long term (current) use of aspirin; Z80.8 Family history of malignant neoplasm of other organs or systems; Z66 Do not resuscitate; Z86.73 Personal history of transient ischemic attack (TIA), and cerebral infarction without residual deficits; R74.0 Nonspecific elevation of levels of transaminase and lactic acid dehydrogenase [LDH]; R59.0 Localized enlarged lymph nodes; R91.8 Other nonspecific abnormal finding of lung field
CPT/HCPCS: 2NASP; ERO; 36415; 71045; 74177; 80307; 81001; 82436; 87040; 87045; 87086; 87328; 87329; 87449; 87450; 87804; 87804-59; 93005; 93010; 96361; 96365; 96372; 96375; 99291; J0131; J0713; J1644; J3370; J3490; J7042; J7060

== ENCOUNTER 2017-10-21 19:04 | Inpatient (IN) | payer OTHER ==
[~2017-10-21] VITALS: Ht 157.5 cm; Wt 63.4 kg
[~2017-10-21 19:04] MED LIST changes: +AMLODIPINE BESYL5 M1 PO; +ANORO ELLIPTA1 EACH INH
[2017-10-21 20:04] LABS: ABSOLUTE BASOPHIL COUNT 0.1 /CUMM (0.0-0.2); ABSOLUTE EOSINOPHIL COUNT 0.2 /CUMM (0.0-0.7); ABSOLUTE GRANULOCYTE CT 3.7 /CUMM (1.4-6.5); ABSOLUTE LYMPH COUNT 2.7 /CUMM (1.2-3.4); ABSOLUTE MONOCYTE COUNT 0.8 /CUMM (0.10-0.60); BASOPHIL % 0.7 % (0.0-2.0); EOSINOPHIL % 3.1 % (0-5); GRANULOCYTE % 49.6 % (42.2-75.2); HEMATOCRIT 37.3 % (37-47); MEAN CORPUSCULAR HGB 31.2 PG (27.0-31.0); MEAN CORPUSCULAR HGB CONC 33.6 G/DL (33.0-37.0); MEAN CORPUSCULAR VOLUME 92.8 FL (81.0-99.0); MEAN PLATELET VOLUME 7.2 FL (7.4-10.4); PLATELET COUNT 387 /CUMM (130-400); PT 11.6 SEC (9.4-12.5); PTT 28 SEC (25-37); RBC DISTRIBUTION WIDTH 14.9 % (11.5-14.5); RED BLOOD CELL CT 4.02 /CUMM (4.20-5.40); WHITE BLOOD CELL COUNT 7.4 /CUMM (4.8-10.8)
--- NOTE | 2017-10-21 20:36 | ED GENERAL ADULT ---
History of Present Illness General Chief Complaint: General Adult Stated Complaint: TILA LAU "SOMETHING ON THE PET SCAN" Source: patient, old records, PCP Exam Limitations: no limitations Vital Signs & Intake/Output Vital Signs & Intake/Output Vital Signs Date Time Temp Pulse Resp B/P B/P Pulse O2 O2 Flow FiO2 Mean Ox Delivery Rate 10/21 2215 97.8 70 18 135/65 95 Room Air 10/21 2100 Room Air 10/212 97.3 81 16 129/87 92 Room Air Allergies Coded Allergies: NO KNOWN ALLERGIES (08/25/16) NKA per Infusion Center nurse Ana. -- Lolly 07/28/14 Reconcile Medications Aspirin (Ecotrin*) 81 MG TABLET.DR 1 TAB PO DAILY heart heatlh (Reported) Lisinopril 20 MG TABLET 1 TAB PO DAILY high blood pressure (Reported) Simvastatin (Simvastatin*) 40 MG TABLET 1 TAB PO EOD CHOLESTEROL (Reported) Umeclidinium Brm/Vilanterol Tr (Anoro Ellipta 62.5-25 Mcg INH) 62.5 MCG-25 MCG/ ACTUATION BLST.W.DEV 1 PUFF INH DAILY COPD (Reported) Triage Note: PT PRESENTS TO THE ER SENT IN BY DR ALVARADO. PT STATES THAT SHE HAD A CAT SCAN YESTERDAY AND THAT HE CALLED HER AND SAID SHE HAD A CLOT.. DR ALVARADO TOLD PT HE WOULD MEET HER IN THE ER. PT STATES SHE TAKE 81 MG ASPIRIN PER DAY.. PT WAS DCD FROM [facility] 1 WEEK AGO FOR COLITIS AND PT STATES THEY DID NOT LIKE HER LUNGS EITHER PT STATES SHE CAN NOT REMEMBER WHERE DR ALVARADO SAID THE CLOT WAS BUT PT STATES HE SAID SOMETHING ABOUT AN ARTERY Triage Nurses Notes Reviewed? yes HPI: Patient had a recent admission for ischemic colitis. During that admission she was found to have what appeared to be hilar adenopathy. Patient was worked up as an outpatient and had a CT angiogram yesterday for a better resolution. The results came back with multiple pulmonary emboli. Patient would be at high risk to start oral anticoagulation at this point since she just had a recent admission for ischemic colitis. Patient was sent in for admission for further evaluation as well as IV heparin. States that she does feel slightly short of breath with ambulation. Patient denies any chest pain or chest tightness. There is no orthopnea. Past History Travel History Traveled to [place] past 21 day No Medical History Any Pertinent Medical History? 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 No Review of Systems Review of Systems Constitutional: Reports: no symptoms. EENTM: Reports: no symptoms. Respiratory: Reports: see HPI, short of breath. Cardiovascular: Reports: no symptoms. GI: Reports: no symptoms. Genitourinary: Reports: no symptoms. Musculoskeletal: Reports: no symptoms. Skin: Reports: no symptoms. Neurological/Psychological: Reports: no symptoms. Hematologic/Endocrine: Reports: no symptoms. Immunologic/Allergic: Reports: no symptoms. All Other Systems: Reviewed and Negative Physical Exam Physical Exam General Appearance: well developed/nourished, alert, awake, anxious Head: atraumatic, normal appearance Eyes: Bilateral: PERRL, EOMI. Ears, Nose, Throat: normal pharynx, normal ENT inspection, hearing grossly normal Neck: normal inspection, supple, full range of motion Respiratory: normal breath sounds, chest non-tender, no respiratory distress, lungs clear Cardiovascular: regular rate/rhythm, normal peripheral pulses Gastrointestinal: normal bowel sounds, soft, non-tender, no organomegaly Rectal: normal exam, normal rectal tone, heme negative stool Back: normal inspection, normal range of motion Extremities: normal inspection, normal capillary refill, normal range of motion, no edema Neurologic/Psych: no motor/sensory deficits, awake, alert, oriented x 3, normal gait, normal mood/affect Skin: intact, normal color, warm/dry Core Measures ACS in differential dx? No CVA/TIA Diagnosis: No Sepsis Present: No Sepsis Focused Exam Completed? No Progress Differential Diagnoses I considered the following diagnoses in my evaluation of the patient: [PULM EMBOLI IN THE SETTING OF RECENT ISCHEMIC COLITIS] Plan of Care: Orders Procedure Date/time Status Regular Diet 10/22 B Active CBC WITHOUT DIFFERENTIAL 10/22 0600 Active BASIC ELECTROLYTES PLUS BUN&CR 10/22 0600 Active EKG 10/22 0600 Active PARTIAL THROMBOPLASTIN TIME 10/22 0300 Active TRC EVALUATION (GEN) 10/21 2233 Active PT Evaluate & Treat 10/21 223 Active Saline Lock 10/21 223 Active Pathway - chart 10/21 2233 Active House Staff 10/21 223 Active Code Status 10/21 2234 Active Intake & Output 10/21 221 Active Patient Data 10/21 2106 Active Telemetry/Certified Tumor Registrar 10/21 2055 Active ED Holding Orders 10/21 2051 Active Admit to inpatient 10/21 2051 Active Vital Signs 10/21 2051 Active Code Status 10/21 2051 Complete EKG 10/21 2035 Active TROPONIN LEVEL 10/21 1909 Complete PARTIAL THROMBOPLASTIN TIME 10/21 1909 Complete PROTHROMBIN TIME 10/21 1909 Complete COMPREHENSIVE METABOLIC PANEL 10/21 1909 Complete CBC WITHOUT DIFFERENTIAL 10/21 1909 Complete B-TYPE NATRIURETIC PEP (BNP) 10/21 1909 Complete US-DEEP VESSEL DOPPLER 10/21 UNK Active Vital Signs 10/21 UNK Active Intake & Output 10/21 UNK Active Hemoccult 10/21 UNK Active ECHOCARDIOGRAM 10/21 UNK Active Current Medications Sig/Traci Start time Last Medication Dose Stop Time Status Admin Atorvastatin Calcium 20 MG 1700 10/22 1700 UNVr (Lipitor) Lisinopril 20 MG DAILY 10/22 1000 UNVr (Prinivil) Tiotropium Rudd 1 PUF DAILY 10/22 1000 UNVr (Spiriva) Acetaminophen 650 MG Q6P PRN 10/21 2244 UNVr (Tylenol) Ibuprofen 400 MG Q6P PRN 10/21 224 UNVr (Motrin) Oxycodone/ 2 TAB Q6P PRN 10/21 224 UNVr Acetaminophen (Percocet) Heparin Sodium 25,000 UNIT Q24H 10/21 2044 AC 10/21 (Porcine) 2112 (Heparin) Sodium Chloride 500 ML Laboratory Tests 10/21/172: Anion Gap 11, Estimated GFR 53 L, BUN/Creatinine Ratio 16.0, Glucose 140 H, Calcium 9.5, Total Bilirubin 0.5, AST 32, ALT 30, Alkaline Phosphatase 27, Troponin I 0.02, Cxl-G-Mgkhqwimvyw Pept 173 H, Total Protein 7.5, Albumin 4.1, Globulin 3.4, Albumin/Globulin Ratio 1.2, PT 11.6, INR 1.11, APTT 28, CBC w Diff NO MAN DIFF REQ, RBC 4.02 L, MCV 92.8, MCH 31.2 H, MCHC 33.6, RDW 14.9 H, MPV 7.2 L, Gran % 49.6, Lymphocytes % 36.1, Monocytes % 10.5 H, Eosinophils % 3.1, Basophils % 0.7, Absolute Granulocytes 3.7, Absolute Lymphocytes 2.7, Absolute Monocytes 0.8 H, Absolute Eosinophils 0.2, Absolute Basophils 0.1 Initial ED EKG: SR WITH NSSTT CHANGES Prior EKG: unchanged Rhythm Strip: normal sinus rhythm Departure Departure Disposition: STILL A PATIENT Condition: Stable Clinical Impression Primary Impression: Pulmonary emboli Qualifiers: Pulmonary embolism type: other Chronicity: acute Referrals: Heber MARTÍNEZ,Guru Gonzalez (PCP/Family) Departure Forms: Customer Survey General Discharge Information Admission Note Spoke With: Angel Luis MARTÍNEZ,Beto Amaral Documentation of Exam: Documentation of any treatments & extenuating circumstances including Concerns Regarding Discharge (functional status, medication knowledge or non-compliance, living conditions, etc.) that warrant an admission rather than observation: [ TELE MONITORING, IV HEPARIN, ECHO, COAGULATION WORK UP] Critical Care Note Critical Care Note Critical Care Time: non-applicable
[2017-10-21] MEDS ORDERED: AMLODIPINE BESYL5 M1 (21:09)
--- NOTE | 2017-10-21 21:26 | PN- Att Addend ---
Attending Addendum Attending Brief Note Seen and examined in the ed Full details per correction officer supervisor's note Sent in by me as reeval of her old ct and pet she had showed sig PE in the left PA with dyspnea REcent ischemic colitis with bloody diarrhea now resolved, with heme neg stool NO chest pain ON room air Dyspnea on excertion ROS neg Vital Signs & Intake/Output Vital Signs & Intake/Output Vital Signs Date Time Temp Pulse Resp B/P B/P Pulse O2 O2 Flow FiO2 Mean Ox Delivery Rate 10/21 1941 97.3 81 16 129/87 92 Room Air Allergies Coded Allergies: NO KNOWN ALLERGIES (08/25/16) NKA per Infusion Center nurse Ana. 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 EENT: NONE Cardiovascular: hypertension, hyperlipidemia, HIGH CHOLESTEROL Respiratory: COPD Gastrointestinal: NONE Hepatic: NONE Renal: NONE Musculoskeletal: NONE Psychiatric: NONE Endocrine: POLYMYALGIA RHEUMATICA Blood Disorders: NONE Cancer(s): NONE TRADER/Reproductive: NONE History of MRSA: No History of VRE: No History of CDIFF: No Influenza Vaccine: 07/08/17 Surgical History Surgical History: HERNIA REPAIR Psychosocial History Who do you live with Spouse Services at Home None What is your primary language Kazakh Tobacco Use: Quit >30 days ago Family History Family History, If Any: FATHER FH: colon cancer MOTHER FH: lung cancer Laboratory Tests 10/21 1941 Chemistry Sodium (137 - 145 mmol/L) 136 L Potassium (3.5 - 5.1 mmol/L) 5.0 Chloride (98 - 107 mmol/L) 99 Carbon Dioxide (22 - 30 mmol/L) 26 Anion Gap (5 - 16) 11 BUN (7 - 17 mg/dL) 16 Creatinine (0.5 - 1.0 mg/dL) 1.0 Estimated GFR (>60 ml/min) 53 L BUN/Creatinine Ratio (7 - 25 %) 16.0 Glucose (65 - 99 mg/dL) 140 H Calcium (8.4 - 10.2 mg/dL) 9.5 Total Bilirubin (0.2 - 1.3 mg/dL) 0.5 AST (14 - 36 U/L) 32 ALT (9 - 52 U/L) 30 Alkaline Phosphatase (<127 U/L) 27 Troponin I (< 0.11 ng/ml) 0.02 Kxb-G-Ellqxjjpauj Pept (<125 pg/mL) 173 H Total Protein (6.3 - 8.2 g/dL) 7.5 Albumin (3.5 - 5.0 g/dL) 4.1 Globulin (1.9 - 4.2 gm/dL) 3.4 Albumin/Globulin Ratio (1.1 - 2.2 %) 1.2 Coagulation PT (9.4 - 12.5 SEC) 11.6 INR (0.90 - 1.19) 1.11 APTT (25 - 37 SEC) 28 Hematology CBC w Diff NO MAN DIFF REQ WBC (4.8 - 10.8 /CUMM) 7.4 RBC (4.20 - 5.40 /CUMM) 4.02 L Hgb (12.0 - 16.0 G/DL) 12.5 Hct (37 - 47 %) 37.3 MCV (81.0 - 99.0 FL) 92.8 MCH (27.0 - 31.0 PG) 31.2 H MCHC (33.0 - 37.0 G/DL) 33.6 RDW (11.5 - 14.5 %) 14.9 H Plt Count (130 - 400 /CUMM) 387 MPV (7.4 - 10.4 FL) 7.2 L Gran % (42.2 - 75.2 %) 49.6 Lymphocytes % (20.5 - 51.1 %) 36.1 Monocytes % (1.7 - 9.3 %) 10.5 H Eosinophils % (0 - 5 %) 3.1 Basophils % (0.0 - 2.0 %) 0.7 Absolute Granulocytes (1.4 - 6.5 /CUMM) 3.7 Absolute Lymphocytes (1.2 - 3.4 /CUMM) 2.7 Absolute Monocytes (0.10 - 0.60 /CUMM) 0.8 H Absolute Eosinophils (0.0 - 0.7 /CUMM) 0.2 Absolute Basophils (0.0 - 0.2 /CUMM) 0.1 Vital Signs Date Time Temp Pulse Resp B/P B/P Pulse O2 O2 Flow FiO2 Mean Ox Delivery Rate 10/21 1941 97.3 81 16 129/87 92 Room Air General Appearance: Alert, Oriented X3, Cooperative, No Acute Distress Cardiovascular: Regular Rate, Normal S1, Normal S2, 2/6 murmur Lungs: bibasilar crackles, more in the left than the right more than the left and the right Abdomen: Normal Bowel Sounds, Soft, No Masses, minimal left sided tenderness to palpation, no rebound tenderness or guarding Extremities: No Clubbing, No Cyanosis, No Edema, Normal Pulses SERVICE DATE: 10/06/17- EXAM TYPE: CAT - CT CHEST W IV CONTRAST Addendum: The following observations/corrections are made on rereview of the dictation initially offered by Dr. Zoë Silva on the CT scan of the chest dated 10/06/2017. These updated critical results were discussed with Dr. Beto Hein 10/21/2017, 2:43 PM and it was ascertained that the content and urgency of this report was understood at the time of direct communication: CT SCAN OF THE CHEST: Pulmonary arteries: The right and left main pulmonary arteries are markedly enlarged, similar to the prior exam from 2014, with the right main pulmonary artery measuring 3.9 cm in maximal AP diameter and the left main pulmonary artery 3.4 cm, consistent with aneurysmal dilatation and pulmonary arterial hypertension. Abnormal nodular and eccentric partially circumferential filling defect is noted within the distal left main pulmonary artery and extending circumferentially in the left lower lobe pulmonary artery down to the proximal segmental branches, consistent with extensive pulmonary embolism, for uncertain chronicity, but presumably acute. Findings are new from 2015. No other definite intraluminal pulmonary arterial filling defects are seen. No definite evidence of elevated right heart pressures are seen. No reflux of contrast into the intrahepatic IVC and no significant leftward bowing of the interventricular septum is seen. Lungs: There is advanced centrilobular and mild paraseptal emphysema seen in the lungs bilaterally. Superimposed mild biapical pleural-based reticular opacities noted, consistent with scarring. There is some volume loss in the left lower lobe with crowding of the bronchovascular lung markings and ill-defined mass like peripheral region of opacification in the extreme left lower lobe with associated air bronchograms. Findings may represent an area of focal pneumonia or other inflammatory change. There are 2 small solid noncalcified nodule seen posteriorly in the right upper lobe, measuring 7 mm in average diameter (series 4, image 155 and 165), unchanged from 2015, consistent with a benign etiology. No other significant bony nodule or mass is seen. There are some scattered areas of pleural and fissural based reticulation and retractile changes seen, consistent with scarring, similar to prior exam. Aorta and heart: The heart is normal in size. Ectasia of the ascending and descending aorta is seen at the ascending aorta at the level of the pulmonary arterial bifurcation measuring 3.6 cm and the descending aorta at the same level 3.0 cm, similar to the prior exam. The aortic arch just beyond the takeoff of the left subclavian artery measures 2.6 cm in diameter. There is no pericardial effusion. Lymphatic structures: There is no mediastinal or axillary lymphadenopathy. Thyroid gland: There is substernal extension of the right lobe of the thyroid gland, unchanged from 03/02/2015. No discrete thyroid mass is noted. Upper abdomen: Mild atrophic changes of the pancreas are noted. Small volume ascites is seen in the left upper quadrant surrounding the spleen. There is thickening and stranding seen involving the splenic flexure and descending colon. Please refer to separate previously measured dictation of the CT scan of the abdomen and pelvis for detailed assessment. Bones: Incidental hemangioma of the T8 vertebral body and a smaller one in the T11 vertebral body is noted. Mild convex right thoracic scoliosis is seen. Osteopenia is noted. IMPRESSION: 1. Extensive central left main pulmonary artery and left lower lobe pulmonary artery emboli are seen with extension into the proximal segmental branches of the left lower lobe. No definite evidence of elevated right heart pressures is seen. 2. Volume loss and presumed focal inflammatory change/consolidation versus atelectasis in the left lower lobe. 3. No significant change in 2 small 7 mm solid noncalcified nodules in the right upper lobe. 4. Extensive underlying obstructive lung disease with presumed secondary chronic pulmonary arterial hypertension. 5. Please refer to abnormal findings in the abdomen and pelvis as reported on the original report. Addendum Signed by: Rose Linton MD 10/21/17 [id number] IMPRESSION This is an 86-year-old lady with previous history of significant smoking, very severe emphysema noted in the CT scan since 2013, hypertension, hyperlipidemia, recent bloody diarrhea with CT scan suggestive of ischemic colitis now slowly improving, recent altered mental status upon admission, stable high right frontal meningioma which is 2.7 x 2.7 cm, moderate chronic white matter microangiopathy, now has the following issues * Extensive PE in central left PA with left sided emboli with no clear evidence of rt heart failure, seen in the recent ct, now being admitted for IV heparin ( pt had bloody diarrhea with ischemic colitis recently) stool heme neg * Severely enlarged PA both sides with corpulmonale * Very severe emphysema noted in the CT scan * Significant left-sided ischemic colitis with vascular disease as noted in the CT scan of the abdomen now with recent admission and dc from this hospital with bloody diarrhea altered mental status mild lactic acidosis. This is resolved and her stool is heme neg * Hypertension, hyperlipidemia, significant peripheral vascular disease * Altered thyroid function tests probably related to sick euthyroid state may need to be repeated soon * Stable meningioma, in the frontal area with significant microangiopathy as noted in the head CT * Poor performance status with significant dyspnea on minimal exertion due to end stage copd comounded by PE RECOMMENDATION * IV heparin * monitor H and H * Doppler lower ext * Continue Spiriva * Continue lipid lowering therapy and aspirin * Hold asa for now * Patient also wishes conservative investigation and management to her poor performance status and she wishes to be DNR/DNI
--- NOTE | 2017-10-21 22:09 | History & Physical ---
General Information and HPI MD Statement: I have seen and personally examined LANETTE MEREDITH and documented this H&P. The patient is a 86 year old F who presented with a patient stated chief complaint of [PE]. Source of Information: patient, old records Exam Limitations: no limitations History of Present Illness: This is 86 year old female with a past medical history significant for HTN, HLD, COPD, stable meningioma and TIA. Patient presented to the emergency department as the CAT scan that was done on 06 October 2017 during her hospitalization showed PE. The PET-scan that was done in 10/20/2017 to evaluate for her questionable hilar lymphadenopathy during that hospitalization came back with suggests of intraluminal thrombus of the pulmonary artery as the PET scan did not show any soft tissue focus, so because of that another reading was done by the radiologist today and they Addend the report with finding of ((Extensive central left main pulmonary artery and left lower lobe pulmonary artery emboli are seen with extension into the proximal segmental branches of the left lower lobe. No definite evidence of elevated right heart pressures is seen)). She was started on IV heparin by the emergency department after the stool guaiac came negative according to the ED staff, As she had bloody diarrhea and she was treated for ischemic colitis during the previous admission. The patient stated that since the discharge she was doing the same no significant worsening or improvement, she still complaining cough and mild shortness of breath with exertion and she still feels weak, fatigued and tired. She denied any fever, chills, heart racing, chest pain, cough, wheezing, lower extremity edema, orthopnea, calf tenderness, hematuria, dysuria, abdominal pain, diarrhea, nausea, vomiting, change in vision or hearing. Allergies/Medications Allergies: Coded Allergies: NO KNOWN ALLERGIES (08/25/16) NKA per Infusion Center nurse Ana. -- Lolly 07/28/14 Home Med list Aspirin (Ecotrin*) 81 MG TABLET.DR 1 TAB PO DAILY heart heatlh (Reported) Lisinopril 20 MG TABLET 1 TAB PO DAILY high blood pressure (Reported) Simvastatin (Simvastatin*) 40 MG TABLET 1 TAB PO EOD CHOLESTEROL (Reported) Umeclidinium Brm/Vilanterol Tr (Anoro Ellipta 62.5-25 Mcg INH) 62.5 MCG-25 MCG/ ACTUATION BLST.W.DEV 1 PUFF INH DAILY COPD (Reported) Past History Travel History Traveled to [place] past 21 day No Medical History Neurological: MENINGIOMA in the brain EENT: NONE Cardiovascular: hypertension, hyperlipidemia, HIGH CHOLESTEROL Respiratory: COPD Gastrointestinal: NONE Hepatic: NONE Renal: NONE Musculoskeletal: NONE Psychiatric: NONE Endocrine: POLYMYALGIA RHEUMATICA Blood Disorders: NONE Cancer(s): NONE 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 spouse Services at Home: None Functional Ability ADLs Independent: dressing, eating, toileting, bathing. Ambulation: independent IADLs Independent: shopping, housework, finances, food prep, telephone, transportation , medication admin. Review of Systems Review of Systems Constitutional: Denies: see HPI. Cardiovascular: Reports: see HPI. Respiratory: Reports: see HPI. GI: Reports: see HPI. Genitourinary: Reports: see HPI. Exam & Diagnostic Data Last 24 Hrs of Vital Signs/I&O Vital Signs Date Time Temp Pulse Resp B/P B/P Pulse O2 O2 Flow FiO2 Mean Ox Delivery Rate 10/21 2344 96.7 80 18 141/68 97 Room Air 10/21 2216 97.8 70 18 135/65 95 Room Air 10/21 2100 Room Air 10/21 1941 97.3 81 16 129/87 92 Room Air Intake & Output 10/22 0800 10/22 0000 10/21 1600 Intake Total Output Total 400 Balance -400 Output, Urine 400 Patient 140 lb Weight Weight Standing Scale Measurement Method Physical Exam General Appearance Alert, Oriented X3, Cooperative HEENT PERRLA, EOMI Neck Supple Cardiovascular Regular Rate, Normal S1, Normal S2 Lungs Normal Air Movement, decrease air entry bibasilar no added sound Abdomen Normal Bowel Sounds, Soft, No Tenderness Extremities Normal Pulses, trace bilateral edema Last 24 Hrs of Labs/David: Laboratory Tests 10/21/171941: Anion Gap 11, Estimated GFR 53 L, BUN/Creatinine Ratio 16.0, Glucose 140 H, Calcium 9.5, Total Bilirubin 0.5, AST 32, ALT 30, Alkaline Phosphatase 27, Troponin I 0.02, [id number] Pept 173 H, Total Protein 7.5, Albumin 4.1, Globulin 3.4, Albumin/Globulin Ratio 1.2, PT 11.6, INR 1.11, APTT 28, CBC w Diff NO MAN DIFF REQ, RBC 4.02 L, MCV 92.8, MCH 31.2 H, MCHC 33.6, RDW 14.9 H, MPV 7.2 L, Gran % 49.6, Lymphocytes % 36.1, Monocytes % 10.5 H, Eosinophils % 3.1, Basophils % 0.7, Absolute Granulocytes 3.7, Absolute Lymphocytes 2.7, Absolute Monocytes 0.8 H, Absolute Eosinophils 0.2, Absolute Basophils 0.1 Diagnostic Data EKG Results Sinus rhythm, heart rate 76, QTC 437, no ST-segment changes compared with the previous EKG Other Results EXAM TYPE: CAT - CT CHEST W IV CONTRAST Addendum: The following observations/corrections are made on rereview of the dictation initially offered by Dr. Zoë Silva on the CT scan of the chest dated 10/06/2017. These updated critical results were discussed with Dr. Beto Hein 10/21/2017, 2:43 PM and it was ascertained that the content and urgency of this report was understood at the time of direct communication: CT SCAN OF THE CHEST: Pulmonary arteries: The right and left main pulmonary arteries are markedly enlarged, similar to the prior exam from 2014, with the right main pulmonary artery measuring 3.9 cm in maximal AP diameter and the left main pulmonary artery 3.4 cm, consistent with aneurysmal dilatation and pulmonary arterial hypertension. Abnormal nodular and eccentric partially circumferential filling defect is noted within the distal left main pulmonary artery and extending circumferentially in the left lower lobe pulmonary artery down to the proximal segmental branches, consistent with extensive pulmonary embolism, for uncertain chronicity, but presumably acute. Findings are new from 2015. No other definite intraluminal pulmonary arterial filling defects are seen. No definite evidence of elevated right heart pressures are seen. No reflux of contrast into the intrahepatic IVC and no significant leftward bowing of the interventricular septum is seen. Lungs: There is advanced centrilobular and mild paraseptal emphysema seen in the lungs bilaterally. Superimposed mild biapical pleural-based reticular opacities noted, consistent with scarring. There is some volume loss in the left lower lobe with crowding of the bronchovascular lung markings and ill-defined mass like peripheral region of opacification in the extreme left lower lobe with associated air bronchograms. Findings may represent an area of focal pneumonia or other inflammatory change. There are 2 small solid noncalcified nodule seen posteriorly in the right upper lobe, measuring 7 mm in average diameter (series 4, image 155 and 165), unchanged from 2015, consistent with a benign etiology. No other significant bony nodule or mass is seen. There are some scattered areas of pleural and fissural based reticulation and retractile changes seen, consistent with scarring, similar to prior exam. Aorta and heart: The heart is normal in size. Ectasia of the ascending and descending aorta is seen at the ascending aorta at the level of the pulmonary arterial bifurcation measuring 3.6 cm and the descending aorta at the same level 3.0 cm, similar to the prior exam. The aortic arch just beyond the takeoff of the left subclavian artery measures 2.6 cm in diameter. There is no pericardial effusion. Lymphatic structures: There is no mediastinal or axillary lymphadenopathy. Thyroid gland: There is substernal extension of the right lobe of the thyroid gland, unchanged from 03/02/2015. No discrete thyroid mass is noted. Upper abdomen: Mild atrophic changes of the pancreas are noted. Small volume ascites is seen in the left upper quadrant surrounding the spleen. There is thickening and stranding seen involving the splenic flexure and descending colon. Please refer to separate previously measured dictation of the CT scan of the abdomen and pelvis for detailed assessment. Bones: Incidental hemangioma of the T8 vertebral body and a smaller one in the T11 vertebral body is noted. Mild convex right thoracic scoliosis is seen. Osteopenia is noted. IMPRESSION: 1. Extensive central left main pulmonary artery and left lower lobe pulmonary artery emboli are seen with extension into the proximal segmental branches of the left lower lobe. No definite evidence of elevated right heart pressures is seen. 2. Volume loss and presumed focal inflammatory change/consolidation versus atelectasis in the left lower lobe. 3. No significant change in 2 small 7 mm solid noncalcified nodules in the right upper lobe. 4. Extensive underlying obstructive lung disease with presumed secondary chronic pulmonary arterial hypertension. 5. Please refer to abnormal findings in the abdomen and pelvis as reported on the original report. Addendum Signed by: Rose Linton MD 10/21/17 9687 EXAMINATION: CT CHEST ABDOMEN AND PELVIS WITH CONTRAST CLINICAL INFORMATION: Bibasilar densities, right red blood per rectum and abdominal pain. COMPARISON: CT pulmonary angiogram dated 03/02/2015. TECHNIQUE: Multidetector volumetric imaging was performed of the chest, abdomen and pelvis after the IV administration of 95 mL of Optiray 320 intravenous contrast. Sagittal and coronal reformatted images were obtained on the technologist's workstation. DLP: 380.33 mGy-cm FINDINGS: LUNGS: A soft tissue mass is present in the posterior aspect of the left lung base measuring 1.1 cm in diameter, and associated linear densities are present in the immediate local region (series 4, 387/952). Interstitial pleural thickening is present in the bilateral lung bases. There are severe cystic/emphysematous changes present throughout the bilateral upper and lower lobes, as well as the right middle lobe, peripheral and central. There is a prominent area of soft tissue material measuring approximately 3.0 x 1.8 x 1.9 cm in size in the posterior margin of the first branch of the left main pulmonary trunk, this is soft tissue density by Hounsfield units suggestive of a conglomeration of lymph nodes, smaller lymph nodes are present in the immediate local region, however there is mass effect on the posterior aspect of the pulmonary trunk just proximal to the bifurcation with resultant narrowing of the vessel. Soft tissue is present surrounding the vascular structures in the left hilar region. Multiple prominent mediastinal lymph nodes are present, all are subcentimeter in short axis dimension however there are numerous of the lymph nodes. The largest in the subcarinal region measures 0.9 cm in short axis dimension. CARDIAC \T\ VESSELS: The cardiac structures are normal in appearance; a cardiac stent is present with coronary vascular calcifications. Mild atherosclerotic plaque is present within the thoracic aorta. The thyroid lobes are unremarkable. BRONCHIAL: No endobronchial findings are noted. LIVER, GALLBLADDER, AND BILIARY TREE: The liver is normal in size, shape, and attenuation. No focal hepatic lesion or biliary ductal dilatation is present. The gallbladder is unremarkable with no evidence of radiopaque gallstones, gallbladder wall thickening, or obvious pericholecystic inflammatory changes. PANCREAS: Unremarkable. SPLEEN: Perisplenic free fluid is present, which tracks along the left lateral conal fascial to the dependent portion of the pelvis. No focal splenic lesions are noted. Vascular calcifications are present in the splenic hilum.. ADRENAL GLANDS: Unremarkable. KIDNEYS AND URETERS: Extrarenal pelves are incidentally noted. There is a 2.9 cm simple right renal cyst in the mid region of the right kidney. The kidneys are normal in size, shape, and attenuation. No hydronephrosis, hydroureter, or calculi seen. No perinephric stranding. BLADDER: A Schmidt catheter is present within the bladder lumen. GASTROINTESTINAL TRACT: The small bowel loops are fluid-filled and normal in caliber. There are prominent inflammatory changes present along the entire left hemicolon with findings suggestive of circumferential wall thickening extending from the splenic flexure to the proximal and mid sigmoid colon. The inferior mesenteric artery is identified and is very small in caliber, the vessels extending to the upper left colon and in particular are small in caliber, asymmetrically smaller in size than the right colon vascular supply. The appendix is not visualized. ABDOMINAL WALL: No significant hernia is appreciated. LYMPH NODES: No pathologically enlarged lymph nodes are present.. VASCULAR: As noted above, the inferior mesenteric artery is very small in caliber, the vascular supply to the left colon are also differentially smaller vascular structures compared to the right. PELVIC VISCERA: The uterus is retroverted and unremarkable, no adnexal mass lesions are noted. OSSEOUS STRUCTURES: Incidental note is made of prominent hemangioma is present within T8 and T11, as well as within T3 and T4. Anterior wedging deformities are noted within the T10 and T11 vertebral bodies. Grade 2 anterolisthesis of L4 on L5 is present No aggressive osseous lesions are noted. IMPRESSION: 1. Generalized inflammatory changes involving the left hemicolon, with small caliber of the inferior mesenteric artery and vessels supplying the left hemicolon. Findings are suggestive of ischemic colitis. 2. Free fluid present predominantly in the left upper quadrant and extending to the dependent portion of the pelvis. 3. Left hilar lymphadenopathy. Also noted is a soft tissue pulmonary mass in the left lung base. The findings are superimposed on extensive chronic lung disease findings. Assessment/Plan Assessment: This is 86 year old female with a past medical history significant for HTN, HLD, COPD not on home O2, stable meningioma and TIA. Patient presented to the emergency department as the CAT scan that was done on 06 October 2017 during her hospitalization showed PE. Problem list: -Pulmonary embolism-most likely unprovoked, no signs of Right heart strain as [id number], no EKG changes. -Hyponatremia -Generalized weakness Plan: -Admit patient to telemetry floor -Vitals every shift -Continue the patient on IV heparin drip -Guaiac all stool, monitor H&H -Obtain bilateral lower extremity Doppler to rule out DVT -Obtain echocardiogram for further assessment -TRC evaluation -Hold off home dose of aspirin continue the rest of home medication -Physical therapy consultation -Heart healthy diet -Pain pathways -DVT prophylaxis: on heparin -DNI DNR As Ranked By This Provider Problem List: 1. Pulmonary emboli Qualifiers Pulmonary embolism type: other Chronicity: acute Core Measures/Misc (05/24) Acute Coronary Syndrome ACS Diagnosis: No Congestive Heart Failure Congestive Heart Failure Diagnosis No Cerebrovascular Accident CVA/TIA Diagnosis: No VTE (View Protocol) VTE Risk Factors Age>40 No Mechanical VTE Prophylaxis d/t DVT (suspected/known) No VTE Pharm Prophylaxis d/t NA PharmProphylax ordered Sepsis (View protocol) Sepsis Present: No
[2017-10-22 04:20] LABS: PTT > 120 SEC (25-37)
[2017-10-22 05:55] LABS: ABSOLUTE EOSINOPHIL COUNT 0.2 /CUMM (0.0-0.7); ABSOLUTE GRANULOCYTE CT 3.8 /CUMM (1.4-6.5); ABSOLUTE LYMPH COUNT 2.2 /CUMM (1.2-3.4); ABSOLUTE MONOCYTE COUNT 0.7 /CUMM (0.10-0.60)
[2017-10-22 06:07] LABS: ABSOLUTE BASOPHIL COUNT 0.1 /CUMM (0.0-0.2); BASOPHIL % 0.8 % (0.0-2.0); EOSINOPHIL % 3.1 % (0-5); GRANULOCYTE % 54.5 % (42.2-75.2); MEAN CORPUSCULAR HGB 31.1 PG (27.0-31.0); MEAN CORPUSCULAR HGB CONC 33.4 G/DL (33.0-37.0); MEAN PLATELET VOLUME 7.1 FL (7.4-10.4); PLATELET COUNT 293 /CUMM (130-400); RBC DISTRIBUTION WIDTH 14.7 % (11.5-14.5); RED BLOOD CELL CT 3.33 /CUMM (4.20-5.40)
[2017-10-22 06:08] LABS: HEMATOCRIT 30.9 % (37-47)
--- NOTE | 2017-10-22 07:31 | PN- Housestaff ---
Subjective Follow-up For: Pulmonary embolism Complaints: no complaints Subjective: Has no complaints this morning. She denies chest pain, shortness of breath, palpitations or lightheadedness. She also has no orthopnea or leg swelling. She tolerated her breakfast without nausea or vomiting. Review of Systems Constitutional: Denies: chills, fever, weakness. Cardiovascular: Denies: chest pain, edema, orthopena, palpitations. Respiratory: Denies: cough, orthopnea, short of breath, sputum production. Gastrointestinal: Denies: abdominal pain, constipation, diarrhea, nausea, vomiting. Musculoskeletal: Denies: back pain, joint swelling. Objective Last 24 Hrs of Vital Signs/I&O Vital Signs Date Time Temp Pulse Resp B/P B/P Pulse O2 O2 Flow FiO2 Mean Ox Delivery Rate 10/22 0522 97.8 69 18 142/75 95 Room Air 10/21 2344 96.7 80 18 141/68 97 Room Air 10/21 2216 97.8 70 18 135/65 95 Room Air 10/21 2100 Room Air 10/21 1942 97.3 81 16 129/87 92 Room Air Intake & Output 10/22 1600 10/22 0800 10/22 0000 Intake Total 142.4 Output Total 500 400 Balance -357.6 -400 Intake, IV 142.4 Output, Urine 500 400 Patient 140 lb Weight Weight Standing Scale Measurement Method Physical Exam General Appearance: Alert, Oriented X3, Cooperative, No Acute Distress Skin: No Rashes, No Breakdown Skin Temp/Moisture Exam: Warm/Dry Sepsis Skin Exam (color): Normal for Ethnicity HEENT: Atraumatic, PERRLA, EOMI, Mucous Membr. moist/pink Neck: Supple, No JVD, No thryomegaly, +2 Carotid Pulse wo Bruit Lymphatic: Cervical nl Cardiovascular: Regular Rate, Normal S1, Normal S2, No Murmurs Lungs: Clear to Auscultation, Normal Air Movement Abdomen: Normal Bowel Sounds, Soft, No Tenderness, No Hepatospenomegaly Neurological: Normal Speech, Normal Tone, Cranial Nerves 3-12 NL Extremities: No Edema, Normal Pulses Current Medications: Current Medications Sig/Traci Start time Last Medication Dose Route Stop Time Status Admin Acetaminophen 650 MG Q6P PRN 10/21 2245 AC PO Atorvastatin Calcium 20 MG 1700 10/22 1700 AC PO Heparin Sodium 0 .STK-MED ONE 10/21 2057 DC (Porcine) .ROUTE Heparin Sodium 25,000 UNIT Q24H 10/21 2044 AC 10/21 (Porcine) IV 2112 Sodium Chloride 500 ML Heparin Sodium 5,000 UNIT ONCE ONE 10/21 2044 DC 10/21 (Porcine) IV 10/21 Ibuprofen 400 MG Q6P PRN 10/21 2245 AC PO Lisinopril 20 MG DAILY 10/22 1000 AC PO Oxycodone/ 2 TAB Q6P PRN 10/21 224 AC Acetaminophen PO Potassium Chloride 40 MEQ BID 10/22 0845 AC PO Tiotropium [place] 1 PUF DAILY 10/22 1000 AC INH Last 24 Hrs of Lab/David Results Last 24 Hrs of Labs/Mics: Laboratory Tests 10/22/17 0533: Anion Gap 9, Estimated GFR > 60, BUN/Creatinine Ratio 16.7, CBC w Diff NO MAN DIFF REQ, RBC 3.33 L, MCV 93.0, MCH 31.1 H, MCHC 33.4, RDW 14.7 H, MPV 7.1 L , Gran % 54.5, Lymphocytes % 31.8, Monocytes % 9.8 H, Eosinophils % 3.1, Basophils % 0.8, Absolute Granulocytes 3.8, Absolute Lymphocytes 2.2, Absolute Monocytes 0.7 H, Absolute Eosinophils 0.2, Absolute Basophils 0.1 10/22/17 0323: APTT > 120 *H 10/21/17 194: Anion Gap 11, Estimated GFR 53 L, BUN/Creatinine Ratio 16.0, Glucose 140 H, Calcium 9.5, Total Bilirubin 0.5, AST 32, ALT 30, Alkaline Phosphatase 27, Troponin I 0.02, [id number] Pept 173 H, Total Protein 7.5, Albumin 4.1, Globulin 3.4, Albumin/Globulin Ratio 1.2, PT 11.6, INR 1.11, APTT 28, CBC w Diff NO MAN DIFF REQ, RBC 4.02 L, MCV 92.8, MCH 31.2 H, MCHC 33.6, RDW 14.9 H, MPV 7.2 L, Gran % 49.6, Lymphocytes % 36.1, Monocytes % 10.5 H, Eosinophils % 3.1, Basophils % 0.7, Absolute Granulocytes 3.7, Absolute Lymphocytes 2.7, Absolute Monocytes 0.8 H, Absolute Eosinophils 0.2, Absolute Basophils 0.1 Assessment/Plan Assessment: 86 year old woman with a past medical history significant for HTN, HLD, COPD, stable meningioma and TIA. Patient presented to the emergency department after being sent in by floriculturist Dr. Hein after a PET scan showed suggestion of pulmonary embolus. Upon further review, Her prior CT angiogram of her chest done during her hospitalization in September 2017 showed a pulmonary embolism as well. She was having mild shortness of breath and fatigue at presentation. She has been started on IV heparin for anticoagulation and this morning she appears improved without complaints. Plan 1. Pulmonary embolism * Venous Doppler ultrasound of legs showed no DVT * Awaiting report of echocardiogram to assess for right heart strain * Continue IV heparin drip * Hemoglobin dropped to 10.3 this morning. Will repeat CBC this evening to look at trend * Continue telemetry monitoring and monitor blood pressure and vital signs closely 2. COPD * Continue tiotropium inhaler * TRC evaluation for nebulizer treatments 3. Hypertension * Continue lisinopril 20 mg daily 4. Hyperlipidemia with history of TIA * Continue atorvastatin 20 mg daily * Hold aspirin 81 mg daily while on anticoagulation DVT prophylaxis IV heparin drip Diet: regular diet CODE STATUS: DNR/DNI Problem List: 1. Pulmonary emboli 2. Hypertension 3. Hyperlipidemia 4. DVT prophylaxis 5. DNR (do not resuscitate) 6. DNI (do not intubate) Pain Ratin Pain Location: None Pain Goal: Remain pain free Pain Plan: Motrin when necessary Tomorrow's Labs & Rationales: CBC for heparin therapy and BEP for electrolyte
--- NOTE | 2017-10-22 08:39 | ULTRASOUND REPORT ---
EXAMINATION: US TRIPLEX OF LOWER EXTREMITIES, BILATERAL CLINICAL INFORMATION: Bilateral extensive PE. Assess for DVT. COMPARISON: None TECHNIQUE: Color-flow triplex imaging with spectral analysis and compression Doppler were performed on the lower extremities. FINDINGS: Respiratory variation, normal compression and augmented flow are noted throughout the lower extremities. The visualized common femoral vein, superficial femoral vein, profunda femoral vein, popliteal vein and midcalf peroneal and posterior tibial venous segments show no evidence of deep venous thrombosis. There is no Perez's cyst. IMPRESSION: Normal triplex scan without evidence of deep venous thrombosis involving the lower extremities.
[2017-10-22 10:46] VITALS: BP 168/80
[2017-10-22 12:07] LABS: PTT 101 SEC (25-37)
[2017-10-22 12:22] VITALS: BP 136/74
--- NOTE | 2017-10-22 14:14 | PN- Pulmonary ---
Subjective HPI/Critical Care Issues: Has no complaints this morning. She denies chest pain, shortness of breath, palpitations or lightheadedness. She also has no orthopnea or leg swelling. She tolerated her breakfast without nausea or vomiting. Review of Systems Constitutional: Denies: chills, fever, weakness. Cardiovascular: Denies: chest pain, edema, orthopena, palpitations. Respiratory: Denies: cough, orthopnea, short of breath, sputum production. Gastrointestinal: Denies: abdominal pain, constipation, diarrhea, nausea, vomiting. Musculoskeletal: Denies: back pain, joint swelling. Objective Current Medications: Current Medications Sig/Traci Start time Last Medication Dose Route Stop Time Status Admin Acetaminophen 650 MG Q6P PRN 10/21 2245 AC PO Atorvastatin Calcium 20 MG 1700 10/22 1700 AC PO Heparin Sodium 0 .STK-MED ONE 10/21 2057 DC (Porcine) .ROUTE Heparin Sodium 25,000 UNIT Q24H 10/21 2044 AC 10/21 (Porcine) IV 211 Sodium Chloride 500 ML Heparin Sodium 5,000 UNIT ONCE ONE 10/21 2044 DC 10/21 (Porcine) IV 10/21 2045 211 Ibuprofen 400 MG Q6P PRN 10/21 2245 AC PO Lisinopril 20 MG DAILY 10/22 1000 AC 10/22 PO 1045 Oxycodone/ 2 TAB Q6P PRN 10/21 2245 AC Acetaminophen PO Potassium Chloride 40 MEQ BID 10/22 0845 AC 10/22 PO 1045 Tiotropium Dexter 1 PUF DAILY 10/22 1000 AC 10/22 INH 1045 Vital Signs & I&O Last 24 Hrs of Vitals and I&O: Vital Signs Date Time Temp Pulse Resp B/P B/P Pulse O2 O2 Flow FiO2 Mean Ox Delivery Rate 10/22 1222 98.1 68 22 136/74 94 Room Air 10/22 1217 98.1 68 22 136/74 94 Room Air 10/22 1046 72 18 168/80 97 Room Air 10/22 1045 72 168/80 10/22 0522 97.8 69 18 142/75 95 Room Air 10/21 2344 96.7 80 18 141/68 97 Room Air 10/21 2216 97.8 70 18 135/65 95 Room Air 10/21 2100 Room Air 10/21 1942 97.3 81 16 129/87 92 Room Air Intake & Output 10/22 1600 10/22 0800 10/22 0000 Intake Total 142.4 Output Total 500 400 Balance -357.6 -400 Intake, IV 142.4 Output, Urine 500 400 Patient 140 lb Weight Weight Standing Scale Measurement Method Laboratory Tests 10/22 10/22 10/22 1128 0533 0323 Chemistry Sodium (137 - 145 mmol/L) 141 Potassium (3.5 - 5.1 mmol/L) 3.3 L Chloride (98 - 107 mmol/L) 112 H Carbon Dioxide (22 - 30 mmol/L) 20 L Anion Gap (5 - 16) 9 BUN (7 - 17 mg/dL) 10 Creatinine (0.5 - 1.0 mg/dL) 0.6 Estimated GFR (>60 ml/min) > 60 BUN/Creatinine Ratio (7 - 25 %) 16.7 Coagulation APTT (25 - 37 SEC) 101 *H > 120 *H Hematology CBC w Diff NO MAN DIFF REQ WBC (4.8 - 10.8 /CUMM) 7.0 RBC (4.20 - 5.40 /CUMM) 3.33 L Hgb (12.0 - 16.0 G/DL) 10.3 L Hct (37 - 47 %) 30.9 L MCV (81.0 - 99.0 FL) 93.0 MCH (27.0 - 31.0 PG) 31.1 H MCHC (33.0 - 37.0 G/DL) 33.4 RDW (11.5 - 14.5 %) 14.7 H Plt Count (130 - 400 /CUMM) 293 MPV (7.4 - 10.4 FL) 7.1 L Gran % (42.2 - 75.2 %) 54.5 Lymphocytes % (20.5 - 51.1 %) 31.8 Monocytes % (1.7 - 9.3 %) 9.8 H Eosinophils % (0 - 5 %) 3.1 Basophils % (0.0 - 2.0 %) 0.8 Absolute Granulocytes (1.4 - 6.5 /CUMM) 3.8 Absolute Lymphocytes (1.2 - 3.4 /CUMM) 2.2 Absolute Monocytes (0.10 - 0.60 /CUMM) 0.7 H Absolute Eosinophils (0.0 - 0.7 /CUMM) 0.2 Absolute Basophils (0.0 - 0.2 /CUMM) 0.1 10/21 1941 Chemistry Sodium (137 - 145 mmol/L) 136 L Potassium (3.5 - 5.1 mmol/L) 5.0 Chloride (98 - 107 mmol/L) 99 Carbon Dioxide (22 - 30 mmol/L) 26 Anion Gap (5 - 16) 11 BUN (7 - 17 mg/dL) 16 Creatinine (0.5 - 1.0 mg/dL) 1.0 Estimated GFR (>60 ml/min) 53 L BUN/Creatinine Ratio (7 - 25 %) 16.0 Glucose (65 - 99 mg/dL) 140 H Calcium (8.4 - 10.2 mg/dL) 9.5 Total Bilirubin (0.2 - 1.3 mg/dL) 0.5 AST (14 - 36 U/L) 32 ALT (9 - 52 U/L) 30 Alkaline Phosphatase (<127 U/L) 27 Troponin I (< 0.11 ng/ml) 0.02 Ynz-F-Rsoguydodiy Pept (<125 pg/mL) 173 H Total Protein (6.3 - 8.2 g/dL) 7.5 Albumin (3.5 - 5.0 g/dL) 4.1 Globulin (1.9 - 4.2 gm/dL) 3.4 Albumin/Globulin Ratio (1.1 - 2.2 %) 1.2 Coagulation PT (9.4 - 12.5 SEC) 11.6 INR (0.90 - 1.19) 1.11 APTT (25 - 37 SEC) 28 Hematology CBC w Diff NO MAN DIFF REQ WBC (4.8 - 10.8 /CUMM) 7.4 RBC (4.20 - 5.40 /CUMM) 4.02 L Hgb (12.0 - 16.0 G/DL) 12.5 Hct (37 - 47 %) 37.3 MCV (81.0 - 99.0 FL) 92.8 MCH (27.0 - 31.0 PG) 31.2 H MCHC (33.0 - 37.0 G/DL) 33.6 RDW (11.5 - 14.5 %) 14.9 H Plt Count (130 - 400 /CUMM) 387 MPV (7.4 - 10.4 FL) 7.2 L Gran % (42.2 - 75.2 %) 49.6 Lymphocytes % (20.5 - 51.1 %) 36.1 Monocytes % (1.7 - 9.3 %) 10.5 H Eosinophils % (0 - 5 %) 3.1 Basophils % (0.0 - 2.0 %) 0.7 Absolute Granulocytes (1.4 - 6.5 /CUMM) 3.7 Absolute Lymphocytes (1.2 - 3.4 /CUMM) 2.7 Absolute Monocytes (0.10 - 0.60 /CUMM) 0.8 H Absolute Eosinophils (0.0 - 0.7 /CUMM) 0.2 Absolute Basophils (0.0 - 0.2 /CUMM) 0.1 Impression/Plan Impression/Plan Impression/Plan: IMPRESSION: 1. Extensive central left main pulmonary artery and left lower lobe pulmonary artery emboli are seen with extension into the proximal segmental branches of the left lower lobe. No definite evidence of elevated right heart pressures is seen. 2. Volume loss and presumed focal inflammatory change/consolidation versus atelectasis in the left lower lobe. 3. No significant change in 2 small 7 mm solid noncalcified nodules in the right upper lobe. 4. Extensive underlying obstructive lung disease with presumed secondary chronic pulmonary arterial hypertension. 5. Please refer to abnormal findings in the abdomen and pelvis as reported on the original report. Addendum Signed by: Rose Linton MD 10/21/17 6555 General Appearance: Alert, Oriented X3, Cooperative, No Acute Distress Skin: No Rashes, No Breakdown Skin Temp/Moisture Exam: Warm/Dry Sepsis Skin Exam (color): Normal for Ethnicity HEENT: Atraumatic, PERRLA, EOMI, Mucous Membr. moist/pink Neck: Supple, No JVD, No thryomegaly, +2 Carotid Pulse wo Bruit Lymphatic: Cervical nl Cardiovascular: Regular Rate, Normal S1, Normal S2, No Murmurs Lungs: Clear to Auscultation, Normal Air Movement Abdomen: Normal Bowel Sounds, Soft, No Tenderness, No Hepatospenomegaly Neurological: Normal Speech, Normal Tone, Cranial Nerves 3-12 NL Extremities: No Edema, Normal Pulses IMPRESSION This is an 86-year-old lady with previous history of significant smoking, very severe emphysema noted in the CT scan since 2013, hypertension, hyperlipidemia, recent bloody diarrhea with CT scan suggestive of ischemic colitis now slowly improving, recent altered mental status upon admission, stable high right frontal meningioma which is 2.7 x 2.7 cm, moderate chronic white matter microangiopathy, now has the following issues * Extensive PE in central left PA with left sided emboli with no clear evidence of rt heart failure, seen in the recent ct, now being admitted for IV heparin ( pt had bloody diarrhea with ischemic colitis recently) stool heme neg * Severely enlarged PA both sides with corpulmonale * Very severe emphysema noted in the CT scan * Significant left-sided ischemic colitis with vascular disease as noted in the CT scan of the abdomen now with recent admission and dc from this hospital with bloody diarrhea altered mental status mild lactic acidosis. This is resolved and her stool is heme neg * Hypertension, hyperlipidemia, significant peripheral vascular disease * Altered thyroid function tests probably related to sick euthyroid state may need to be repeated soon * Stable meningioma, in the frontal area with significant microangiopathy as noted in the head CT * Poor performance status with significant dyspnea on minimal exertion due to end stage copd comounded by PE * Worsening hemoglobin RECOMMENDATION * IV heparin * monitor H and H, recheck cbc this pm * Guaic all stool * DC ibuprofen and use only tylenol for pain * IF the crit drops further check guaic and if neg ct abd to rule out retroperitoneal bleed * WIll change to lovenox in am if stable * Continue Spiriva * Continue lipid lowering therapy and aspirin * Hold asa for now * Patient also wishes conservative investigation and management to her poor performance status and she wishes to be DNR/DNI
[2017-10-22 18:46] LABS: ABSOLUTE EOSINOPHIL COUNT 0.2 /CUMM (0.0-0.7); ABSOLUTE GRANULOCYTE CT 4.1 /CUMM (1.4-6.5); RED BLOOD CELL CT 4.13 /CUMM (4.20-5.40)
[2017-10-22 19:09] LABS: ABSOLUTE BASOPHIL COUNT 0.1 /CUMM (0.0-0.2); ABSOLUTE MONOCYTE COUNT 0.7 /CUMM (0.10-0.60); BASOPHIL % 0.7 % (0.0-2.0); EOSINOPHIL % 2.2 % (0-5); GRANULOCYTE % 50.5 % (42.2-75.2); MEAN CORPUSCULAR HGB CONC 33.2 G/DL (33.0-37.0); MEAN CORPUSCULAR VOLUME 93.3 FL (81.0-99.0); MEAN PLATELET VOLUME 7.9 FL (7.4-10.4); PLATELET COUNT 358 /CUMM (130-400); RBC DISTRIBUTION WIDTH 15.2 % (11.5-14.5)
[2017-10-22 19:11] LABS: HEMATOCRIT 38.5 % (37-47)
[2017-10-22 21:17] LABS: PTT 43 SEC (25-37)
[2017-10-22 22:54] VITALS: BP 140/80
[2017-10-23 04:13] LABS: PTT 86 SEC (25-37)
--- NOTE | 2017-10-23 07:19 | Transfer of Care Summary ---
Hospital Course Course Hospital Course: 86 year old woman with a past medical history significant for HTN, HLD, COPD, stable meningioma and TIA. Patient presented to the emergency department after being sent in by armored car guard and driver Dr. Hein after a PET scan showed suggestion of pulmonary embolus. Upon further review, Her prior CT angiogram of her chest done during her hospitalization in September 2017 showed a pulmonary embolism as well. She was having mild shortness of breath and fatigue at presentation. She has been started on IV heparin for anticoagulation and this morning she appeared improved without complaints. Assessment/Plan: Plan 1. Pulmonary embolism Venous Doppler ultrasound of legs showed no DVT Awaiting report of echocardiogram to assess for right heart strain Switch IV heparin drip to therapeutic lovenox this AM 2. COPD Continue tiotropium inhaler TRC evaluation for nebulizer treatments 3. Hypertension Continue lisinopril 20 mg daily 4. Hyperlipidemia with history of TIA Continue atorvastatin 20 mg daily Continue aspirin 81 mg daily DVT prophylaxis IV heparin drip Diet: regular diet CODE STATUS: DNR/DNI 6. DNI (do not intubate) Pain Ratin Pain Location:
[2017-10-23 07:49] VITALS: BP 124/62
[2017-10-23 08:24] LABS: ABSOLUTE BASOPHIL COUNT 0 /CUMM (0.0-0.2); ABSOLUTE EOSINOPHIL COUNT 0.2 /CUMM (0.0-0.7); ABSOLUTE GRANULOCYTE CT 2.3 /CUMM (1.4-6.5); ABSOLUTE LYMPH COUNT 2.6 /CUMM (1.2-3.4); ABSOLUTE MONOCYTE COUNT 0.7 /CUMM (0.10-0.60); BASOPHIL % 0.7 % (0.0-2.0); EOSINOPHIL % 3.7 % (0-5); GRANULOCYTE % 39.7 % (42.2-75.2); HEMATOCRIT 33.8 % (37-47); MEAN CORPUSCULAR HGB 31.2 PG (27.0-31.0); MEAN CORPUSCULAR HGB CONC 33.7 G/DL (33.0-37.0); MEAN CORPUSCULAR VOLUME 92.4 FL (81.0-99.0); MEAN PLATELET VOLUME 7.5 FL (7.4-10.4); PLATELET COUNT 301 /CUMM (130-400); RBC DISTRIBUTION WIDTH 15.3 % (11.5-14.5); RED BLOOD CELL CT 3.66 /CUMM (4.20-5.40); WHITE BLOOD CELL COUNT 5.8 /CUMM (4.8-10.8)
--- NOTE | 2017-10-23 08:46 | PN- Housestaff ---
Subjective Follow-up For: pulmonary embolism Subjective: no complaints of dyspnea, pleuritic chest pain, or cough no lower extremity swelling or any complaints Review of Systems Constitutional: Reports: see HPI. Objective Last 24 Hrs of Vital Signs/I&O Vital Signs Date Time Temp Pulse Resp B/P B/P Pulse O2 O2 Flow FiO2 Mean Ox Delivery Rate 10/23 0953 97.1 64 16 124/62 10/23 0749 97.1 64 16 124/62 96 Room Air 10/22 2254 97.9 64 20 140/80 95 Room Air 10/22 2149 98.0 70 18 134/88 95 Room Air Room Air 10/22 1850 97.8 74 18 160/94 93 Room Air Intake & Output 10/23 1600 10/23 0800 10/23 0000 Intake Total 642.4 497.8 Output Total Balance 642.4 497.8 Intake, IV 142.4 17.8 Intake, Oral 500 480 Physical Exam General Appearance: Alert, Oriented X3, Cooperative, No Acute Distress Cardiovascular: Regular Rate, Normal S1, Normal S2, No Murmurs Lungs: Clear to Auscultation, Normal Air Movement Abdomen: Normal Bowel Sounds, Soft, No Tenderness, No Masses Extremities: No Clubbing, No Cyanosis, No Edema, Normal Pulses Current Medications: Current Medications Sig/Traci Start time Last Medication Dose Route Stop Time Status Admin Acetaminophen 500 MG Q6P PRN 10/22 1600 AC PO Acetaminophen 650 MG Q6P PRN 10/21 2245 AC PO Aspirin Buffered 81 MG DAILY 10/22 1600 AC 10/23 PO 0952 Atorvastatin Calcium 20 MG 1700 10/22 1700 AC 10/22 PO 2101 Enoxaparin Sodium 60 MG BID 10/23 1000 DC SC Enoxaparin Sodium 100 MG DAILY 10/23 1000 AC SC Heparin Sodium 25,000 UNIT Q24H 10/21 2045 DC 10/23 (Porcine) IV 10/23 1000 0355 Sodium Chloride 500 ML Ibuprofen 400 MG Q6P PRN 10/21 2245 DC PO Lisinopril 20 MG DAILY 10/22 1000 AC 10/23 PO 0953 Oxycodone/ 2 TAB Q6P PRN 10/21 2245 AC Acetaminophen PO Potassium Chloride 40 MEQ BID 10/22 0845 DC 10/23 PO 10/23 1001 0953 Tiotropium Jadwin 1 PUF DAILY 02/15 1000 AC 10/22 INH 1045 Last 24 Hrs of Lab/David Results Last 24 Hrs of Labs/Mics: Laboratory Tests 10/23/17 0725: Anion Gap 10, Estimated GFR > 60, BUN/Creatinine Ratio 12.5, CBC w Diff NO MAN DIFF REQ, RBC 3.66 L, MCV 92.4, MCH 31.2 H, MCHC 33.7, RDW 15.3 H, MPV 7.5, Gran % 39.7 L, Lymphocytes % 44.2, Monocytes % 11.7 H, Eosinophils % 3.7, Basophils % 0.7, Absolute Granulocytes 2.3, Absolute Lymphocytes 2.6, Absolute Monocytes 0.7 H, Absolute Eosinophils 0.2, Absolute Basophils 0 10/23/17 0345: APTT 86 H 10/22/172056: APTT 43 H 10/22/179: CBC w Diff NO MAN DIFF REQ, RBC 4.13 L, MCV 93.3, MCH 31.0, MCHC 33.2, RDW 15.2 H, MPV 7.9, Gran % 50.5, Lymphocytes % 37.4, Monocytes % 9.2, Eosinophils % 2.2 , Basophils % 0.7, Absolute Granulocytes 4.1, Absolute Lymphocytes 3.0, Absolute Monocytes 0.7 H, Absolute Eosinophils 0.2, Absolute Basophils 0.1 Assessment/Plan Assessment: 86 year old woman with a past medical history significant for HTN, HLD, COPD, stable meningioma and TIA was sent in by advertising assistant manager Dr. Hein after a PET scan showed pulmonary embolus. After review, a prior CT angiogram of her chest done in September 2017 showed a pulmonary embolism as well. She is currently on IV heparin drip. Pulmonary embolism: No significant hypoxia or tachycardia Venous Doppler ultrasound of legs showed no DVT No right heart strain on echocardiogram Discontinue IV heparin drip and start lovenox 1.5mg/kg daily Monitor CBC, recent GI bleed, avoid hypotension, guiaic stool CTA addendum: Extensive central left main pulmonary artery and left lower lobe pulmonary artery emboli are seen with extension into the proximal segmental branches of the left lower lobe. No definite evidence of elevated right heart pressures is seen. Extensive underlying obstructive lung disease with presumed secondary chronic pulmonary arterial hypertension. Volume loss and presumed focal inflammatory change/consolidation versus atelectasis in the left lower lobe. Unchanged subcentimeter RUL nodules. COPD: Never required supplemental oxygen Continue spiriva TRC evaluation for nebulized albuterol treatments Hypertension Continue lisinopril TIA/HLD Continue statin Aspirin on hold currently Regular diet DVT ppx- on heparin gtt transition to lovenox DNR/DNI Problem List: 1. Pulmonary emboli 2. Ischemic colitis Pain Ratin Pain Location: n/a Pain Goal: Pain 4 or less Pain Plan: prn Tomorrow's Labs & Rationales: cbc
--- NOTE | 2017-10-23 10:18 | ECHOCARDIOGRAM REPORT ---
LANETTE MEREDITH Age: 86 : 1930 Gender: F Exam Date: 10/22/2017 09:28 Exam Location: ER Ht (in): 62 Wt (lb): 139 BSA: 1.67 BP: 142 / 75 Ordering Physician: Luis Daniel Velarde MD Referring Physician: Luis Daniel Velarde MD Technologist: Jay Zuleta [facility] Room Number: 18 Indications: ACUTE PULMONARY EMBOLISM Rhythm: Sinus Technical Quality: good FINDINGS Left Ventricle Normal left ventricular size, wall thickness and systolic function with no obvious regional wall motion abnormalities. Diastolic filling pattern is consistent with impaired LV relaxation. The ejection fraction is visually estimated at 55%. Right Ventricle The right ventricle is normal in size and function. Right Atrium The right atrium is normal in size. Left Atrium The left atrium is normal in size. The interatrial septum is intact. Mitral Valve The mitral valve is normal in structure and function. There is trace mitral regurgitation. Aortic Valve Structurally normal aortic valve without significant sclerosis or stenosis. There is no aortic regurgitation. Tricuspid Valve The tricuspid valve is normal in structure and function. There is mild tricuspid regurgitation. Pulmonary artery systolic pressure is normal. Pulmonic Valve Structurally normal pulmonic valve. There is no pulmonic regurgitation. Pericardium Normal pericardium without effusion. No pleural effusion. Great Vessels Normal aortic root dimension. The aortic arch and great vessels are well seen and are normal. CONCLUSIONS 1. Normal EF of 55% with impaired LV relaxation. 2. Trace mitral regurgitation. 3. Mild tricuspid regurgitation. Ever Parker M.D. (Electronically Signed) Final Date: 23 October 2017 10:17 MEASUREMENTS (Male / Female) Normal Values 2D ECHO LV Diastolic Diameter PLAX 4.4 cm 4.2 - 5.9 / 3.9 - 5.3 cm LV Systolic Diameter PLAX 2.6 cm 2.1 - 4.0 cm LV Fractional Shortening PLAX 40.9 % 25 - 46 % LV Ejection Fraction 2D Teich 71.9 % IVS Diastolic Thickness 1.0 cm LVPW Diastolic Thickness 1.0 cm LV Relative Wall Thickness 0.5 RV Internal Dim ED PLAX 3.0 cm 1.9 - 3.8 cm LVOT Diameter 2.2 cm Aortic Root Diameter 2.8 cm LA Systolic Diameter LX 3.3 cm 3.0 - 4.0 / 2.7 - 3.8 cm Ascending Aorta Diameter 3.4 cm DOPPLER AV Peak Velocity 149.0 cm/s AV Peak Gradient 8.9 mmHg AV Mean Velocity 104.0 cm/s AV Mean Gradient 5.0 mmHg AV Velocity Time Integral 34.5 cm LVOT Peak Velocity 86.5 cm/s LVOT Peak Gradient 3.0 mmHg LVOT Mean Velocity 55.3 cm/s LVOT Mean Gradient 2.0 mmHg LVOT Velocity Time Integral 19.6 cm LVOT Stroke Volume 74.5 cm AV Area Cont Eq vti 2.2 cm AV Area Cont Eq pk 2.2 cm MV Peak Velocity 101.0 cm/s MV Peak Gradient 4.1 mmHg MV Mean Velocity 55.8 cm/s MV Mean Gradient 1.0 mmHg Mitral E Point Velocity 62.2 cm/s Mitral A Point Velocity 95.3 cm/s Mitral E to A Ratio 0.7 MV PHT Velocity 78.7 cm/s MV Deceleration Bulloch 196.0 cm/s MV Pressure Half Time 120.5 ms MV Area PHT 1.8 cm MV Deceleration Time 296.0 ms PV Peak Velocity 121.0 cm/s PV Peak Gradient 5.9 mmHg PV Mean Velocity 75.8 cm/s PV Mean Gradient 3.0 mmHg PV Velocity Time Integral 27.2 cm LV E' Lateral Velocity 8.4 cm/s Mitral E to LV E' Lateral Ratio 7.4 LV E' Septal Velocity 7.3 cm/s Mitral E to LV E' Septal Ratio 8.5
--- NOTE | 2017-10-23 13:24 | PN- Pulmonary ---
Subjective HPI/Critical Care Issues: no complaints of dyspnea, pleuritic chest pain, or cough no lower extremity swelling or any complaints Review of Systems Constitutional: Reports: see HPI. Objective Current Medications: Current Medications Sig/Traci Start time Last Medication Dose Route Stop Time Status Admin Acetaminophen 500 MG Q6P PRN 10/22 1600 AC PO Acetaminophen 650 MG Q6P PRN 10/21 2245 AC PO Aspirin Buffered 81 MG DAILY 10/22 1600 AC 10/23 PO 0952 Atorvastatin Calcium 20 MG 1700 10/22 1700 AC 10/22 PO 2101 Enoxaparin Sodium 60 MG BID 10/23 1000 DC SC Enoxaparin Sodium 100 MG DAILY 10/23 1000 AC 10/23 SC 1243 Heparin Sodium 25,000 UNIT Q24H 10/21 2045 DC 10/23 (Porcine) IV 10/23 1000 0355 Sodium Chloride 500 ML Ibuprofen 400 MG Q6P PRN 10/21 2245 DC PO Lisinopril 20 MG DAILY 10/22 1000 AC 10/23 PO 0953 Oxycodone/ 2 TAB Q6P PRN 10/21 2245 AC Acetaminophen PO Potassium Chloride 40 MEQ BID 10/22 0845 DC 10/23 PO 10/23 1001 0953 Tiotropium [place] 1 PUF DAILY 10/22 1000 AC 10/23 INH 1242 Vital Signs & I&O Last 24 Hrs of Vitals and I&O: Vital Signs Date Time Temp Pulse Resp B/P B/P Pulse O2 O2 Flow FiO2 Mean Ox Delivery Rate 10/23 0953 97.1 64 16 124/62 10/23 0749 97.1 64 16 124/62 96 Room Air 10/22 2254 97.9 64 20 140/80 95 Room Air 10/22 2149 98.0 70 18 134/88 95 Room Air Room Air 10/22 1850 97.8 74 18 160/94 93 Room Air Intake & Output 10/23 1600 10/23 0800 10/23 0000 Intake Total 642.4 497.8 Output Total Balance 642.4 497.8 Intake, IV 142.4 17.8 Intake, Oral 500 480 Laboratory Tests 10/23 10/23 10/22 0725 0345 2057 Chemistry Sodium (137 - 145 mmol/L) 139 Potassium (3.5 - 5.1 mmol/L) 4.4 Chloride (98 - 107 mmol/L) 108 H Carbon Dioxide (22 - 30 mmol/L) 21 L Anion Gap (5 - 16) 10 BUN (7 - 17 mg/dL) 10 Creatinine (0.5 - 1.0 mg/dL) 0.8 Estimated GFR (>60 ml/min) > 60 BUN/Creatinine Ratio (7 - 25 %) 12.5 Coagulation APTT (25 - 37 SEC) 86 H 43 H Hematology CBC w Diff NO MAN DIFF REQ WBC (4.8 - 10.8 /CUMM) 5.8 RBC (4.20 - 5.40 /CUMM) 3.66 L Hgb (12.0 - 16.0 G/DL) 11.4 L Hct (37 - 47 %) 33.8 L MCV (81.0 - 99.0 FL) 92.4 MCH (27.0 - 31.0 PG) 31.2 H MCHC (33.0 - 37.0 G/DL) 33.7 RDW (11.5 - 14.5 %) 15.3 H Plt Count (130 - 400 /CUMM) 301 MPV (7.4 - 10.4 FL) 7.5 Gran % (42.2 - 75.2 %) 39.7 L Lymphocytes % (20.5 - 51.1 %) 44.2 Monocytes % (1.7 - 9.3 %) 11.7 H Eosinophils % (0 - 5 %) 3.7 Basophils % (0.0 - 2.0 %) 0.7 Absolute Granulocytes (1.4 - 6.5 /CUMM) 2.3 Absolute Lymphocytes (1.2 - 3.4 /CUMM) 2.6 Absolute Monocytes (0.10 - 0.60 /CUMM) 0.7 H Absolute Eosinophils (0.0 - 0.7 /CUMM) 0.2 Absolute Basophils (0.0 - 0.2 /CUMM) 0 10/22 10/22 1829 1128 Coagulation APTT (25 - 37 SEC) 101 *H Hematology CBC w Diff NO MAN DIFF REQ WBC (4.8 - 10.8 /CUMM) 8.0 RBC (4.20 - 5.40 /CUMM) 4.13 L Hgb (12.0 - 16.0 G/DL) 12.8 Hct (37 - 47 %) 38.5 MCV (81.0 - 99.0 FL) 93.3 MCH (27.0 - 31.0 PG) 31.0 MCHC (33.0 - 37.0 G/DL) 33.2 RDW (11.5 - 14.5 %) 15.2 H Plt Count (130 - 400 /CUMM) 358 MPV (7.4 - 10.4 FL) 7.9 Gran % (42.2 - 75.2 %) 50.5 Lymphocytes % (20.5 - 51.1 %) 37.4 Monocytes % (1.7 - 9.3 %) 9.2 Eosinophils % (0 - 5 %) 2.2 Basophils % (0.0 - 2.0 %) 0.7 Absolute Granulocytes (1.4 - 6.5 /CUMM) 4.1 Absolute Lymphocytes (1.2 - 3.4 /CUMM) 3.0 Absolute Monocytes (0.10 - 0.60 /CUMM) 0.7 H Absolute Eosinophils (0.0 - 0.7 /CUMM) 0.2 Absolute Basophils (0.0 - 0.2 /CUMM) 0.1 10/22 10/22 0533 0323 Chemistry Sodium (137 - 145 mmol/L) 141 Potassium (3.5 - 5.1 mmol/L) 3.3 L Chloride (98 - 107 mmol/L) 112 H Carbon Dioxide (22 - 30 mmol/L) 20 L Anion Gap (5 - 16) 9 BUN (7 - 17 mg/dL) 10 Creatinine (0.5 - 1.0 mg/dL) 0.6 Estimated GFR (>60 ml/min) > 60 BUN/Creatinine Ratio (7 - 25 %) 16.7 Coagulation APTT (25 - 37 SEC) > 120 *H Hematology CBC w Diff NO MAN DIFF REQ WBC (4.8 - 10.8 /CUMM) 7.0 RBC (4.20 - 5.40 /CUMM) 3.33 L Hgb (12.0 - 16.0 G/DL) 10.3 L Hct (37 - 47 %) 30.9 L MCV (81.0 - 99.0 FL) 93.0 MCH (27.0 - 31.0 PG) 31.1 H MCHC (33.0 - 37.0 G/DL) 33.4 RDW (11.5 - 14.5 %) 14.7 H Plt Count (130 - 400 /CUMM) 293 MPV (7.4 - 10.4 FL) 7.1 L Gran % (42.2 - 75.2 %) 54.5 Lymphocytes % (20.5 - 51.1 %) 31.8 Monocytes % (1.7 - 9.3 %) 9.8 H Eosinophils % (0 - 5 %) 3.1 Basophils % (0.0 - 2.0 %) 0.8 Absolute Granulocytes (1.4 - 6.5 /CUMM) 3.8 Absolute Lymphocytes (1.2 - 3.4 /CUMM) 2.2 Absolute Monocytes (0.10 - 0.60 /CUMM) 0.7 H Absolute Eosinophils (0.0 - 0.7 /CUMM) 0.2 Absolute Basophils (0.0 - 0.2 /CUMM) 0.1 10/21 1942 Chemistry Sodium (137 - 145 mmol/L) 136 L Potassium (3.5 - 5.1 mmol/L) 5.0 Chloride (98 - 107 mmol/L) 99 Carbon Dioxide (22 - 30 mmol/L) 26 Anion Gap (5 - 16) 11 BUN (7 - 17 mg/dL) 16 Creatinine (0.5 - 1.0 mg/dL) 1.0 Estimated GFR (>60 ml/min) 53 L BUN/Creatinine Ratio (7 - 25 %) 16.0 Glucose (65 - 99 mg/dL) 140 H Calcium (8.4 - 10.2 mg/dL) 9.5 Total Bilirubin (0.2 - 1.3 mg/dL) 0.5 AST (14 - 36 U/L) 32 ALT (9 - 52 U/L) 30 Alkaline Phosphatase (<127 U/L) 27 Troponin I (< 0.11 ng/ml) 0.02 Src-X-Iqvchcskzjf Pept (<125 pg/mL) 173 H Total Protein (6.3 - 8.2 g/dL) 7.5 Albumin (3.5 - 5.0 g/dL) 4.1 Globulin (1.9 - 4.2 gm/dL) 3.4 Albumin/Globulin Ratio (1.1 - 2.2 %) 1.2 Coagulation PT (9.4 - 12.5 SEC) 11.6 INR (0.90 - 1.19) 1.11 APTT (25 - 37 SEC) 28 Hematology CBC w Diff NO MAN DIFF REQ WBC (4.8 - 10.8 /CUMM) 7.4 RBC (4.20 - 5.40 /CUMM) 4.02 L Hgb (12.0 - 16.0 G/DL) 12.5 Hct (37 - 47 %) 37.3 MCV (81.0 - 99.0 FL) 92.8 MCH (27.0 - 31.0 PG) 31.2 H MCHC (33.0 - 37.0 G/DL) 33.6 RDW (11.5 - 14.5 %) 14.9 H Plt Count (130 - 400 /CUMM) 387 MPV (7.4 - 10.4 FL) 7.2 L Gran % (42.2 - 75.2 %) 49.6 Lymphocytes % (20.5 - 51.1 %) 36.1 Monocytes % (1.7 - 9.3 %) 10.5 H Eosinophils % (0 - 5 %) 3.1 Basophils % (0.0 - 2.0 %) 0.7 Absolute Granulocytes (1.4 - 6.5 /CUMM) 3.7 Absolute Lymphocytes (1.2 - 3.4 /CUMM) 2.7 Absolute Monocytes (0.10 - 0.60 /CUMM) 0.8 H Absolute Eosinophils (0.0 - 0.7 /CUMM) 0.2 Absolute Basophils (0.0 - 0.2 /CUMM) 0.1 Impression/Plan Impression/Plan Impression/Plan: IMPRESSION: 1. Extensive central left main pulmonary artery and left lower lobe pulmonary artery emboli are seen with extension into the proximal segmental branches of the left lower lobe. No definite evidence of elevated right heart pressures is seen. 2. Volume loss and presumed focal inflammatory change/consolidation versus atelectasis in the left lower lobe. 3. No significant change in 2 small 7 mm solid noncalcified nodules in the right upper lobe. 4. Extensive underlying obstructive lung disease with presumed secondary chronic pulmonary arterial hypertension. 5. Please refer to abnormal findings in the abdomen and pelvis as reported on the original report. Addendum Signed by: Rose Linton MD 10/21/17 0636 General Appearance: Alert, Oriented X3, Cooperative, No Acute Distress Skin: No Rashes, No Breakdown Skin Temp/Moisture Exam: Warm/Dry Sepsis Skin Exam (color): Normal for Ethnicity HEENT: Atraumatic, PERRLA, EOMI, Mucous Membr. moist/pink Neck: Supple, No JVD, No thryomegaly, +2 Carotid Pulse wo Bruit Lymphatic: Cervical nl Cardiovascular: Regular Rate, Normal S1, Normal S2, No Murmurs Lungs: Clear to Auscultation, Normal Air Movement Abdomen: Normal Bowel Sounds, Soft, No Tenderness, No Hepatospenomegaly Neurological: Normal Speech, Normal Tone, Cranial Nerves 3-12 NL Extremities: No Edema, Normal Pulses IMPRESSION This is an 86-year-old lady with previous history of significant smoking, very severe emphysema noted in the CT scan since 2013, hypertension, hyperlipidemia, recent bloody diarrhea with CT scan suggestive of ischemic colitis now slowly improving, recent altered mental status upon admission, stable high right frontal meningioma which is 2.7 x 2.7 cm, moderate chronic white matter microangiopathy, now has the following issues * Extensive PE in central left PA with left sided emboli with no clear evidence of rt heart failure, seen in the recent ct, now being admitted for IV heparin ( pt had bloody diarrhea with ischemic colitis recently) stool heme neg * Severely enlarged PA both sides with corpulmonale * Very severe emphysema noted in the CT scan * Recent episode of Significant left-sided ischemic colitis with vascular disease as noted in the CT scan of the abdomen now with recent admission and dc from this hospital with bloody diarrhea altered mental status mild lactic acidosis. 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
[2017-10-23 14:16] VITALS: BP 120/62
[2017-10-23] MEDS ORDERED: LOVENOX100 MG/1 M SC (16:57)
--- NOTE | 2017-10-23 17:00 | Patient Discharge Instructions ---
Discharge Instructions General Discharge Information You were seen/treated for: Pulmonary embolism Special Instructions: Continue lovenox 100mg daily Follow up with dr. wagoner and your primary care physician Acute Coronary Syndrome Inclusion Criteria At DC or during hospital stay patient has or had the following: ACS DIAGNOSIS No Discharge Core Measures Meds if any: Prescribed or Continued at Discharge Meds if any: NOT Prescribed or Continued at Discharge Congestive Heart Failure Inclusion Criteria At DC or during hospital stay patient has or had the following: CHF DIAGNOSIS No Discharge Core Measures Meds if any: Prescribed or Continued at Discharge Meds if any: NOT Prescribed or Continued at Discharge Cerebrovascular accident Inclusion Criteria At DC or during hospital stay patient has or had the following: CVA/TIA Diagnosis No Discharge Core Measures Meds if any: Prescribed or Continued at Discharge Meds if any: NOT Prescribed or Continued at Discharge Venous thromboembolism Inclusion Criteria VTE Diagnosis Yes VTE Type Pulmonary Embolism VTE Confirmed by (Test) CT CHEST ANGIOGRAM Discharge Core Measures - Per Current guidelines, there needs to be overlap - treatment for the first 5 days of Warfarin therapy. - If discharged on Warfarin prior to 5 days of - overlap therapy, the patient will need to be - assessed for post discharge needs including - *Post discharge parental anticoagulation - *Warfarin and/or parental anticoagulation education - *Follow up date to check INR post discharge At least 5 days overlap therapy as Inpatient Yes Meds if any: Prescribed or Continued at Discharge Note: Overlap Therapy is Warfarin and Anticoagulant Meds if any: NOT Prescribed or Continued at Discharge
[2017-10-23 22:03] VITALS: BP 122/80
[2017-10-24 06:51] VITALS: BP 118/78
[2017-10-24 08:39] LABS: ABSOLUTE BASOPHIL COUNT 0.1 /CUMM (0.0-0.2); ABSOLUTE EOSINOPHIL COUNT 0.2 /CUMM (0.0-0.7); ABSOLUTE GRANULOCYTE CT 2.8 /CUMM (1.4-6.5); ABSOLUTE LYMPH COUNT 2.6 /CUMM (1.2-3.4); ABSOLUTE MONOCYTE COUNT 0.7 /CUMM (0.10-0.60); EOSINOPHIL % 3.8 % (0-5); GRANULOCYTE % 43.3 % (42.2-75.2); HEMATOCRIT 38.3 % (37-47); MEAN CORPUSCULAR HGB 31.2 PG (27.0-31.0); MEAN CORPUSCULAR HGB CONC 33.6 G/DL (33.0-37.0); MEAN PLATELET VOLUME 7.6 FL (7.4-10.4); PLATELET COUNT 363 /CUMM (130-400); RBC DISTRIBUTION WIDTH 14.8 % (11.5-14.5); RED BLOOD CELL CT 4.12 /CUMM (4.20-5.40); WHITE BLOOD CELL COUNT 6.4 /CUMM (4.8-10.8)
[2017-10-24] MEDS ORDERED: LOVENOX100 MG/1 M SC (14:27)
[2017-10-24 15:00] VITALS: BP 120/78
--- NOTE | 2017-10-24 18:59 | Discharge Summary ---
Visit Information Visit Dates Admission Date: 10/21/17 Discharge Date: 10/24/17 Hospital Course Course Attending Physician: Angel Luis MARTÍNEZ,Beto Amaral Primary Care Physician: Guru Buck MD Hospital Course: General Appearance: Alert, Oriented X3, Cooperative, No Acute Distress Skin: No Rashes, No Breakdown Skin Temp/Moisture Exam: Warm/Dry Sepsis Skin Exam (color): Normal for Ethnicity HEENT: Atraumatic, PERRLA, EOMI, Mucous Membr. moist/pink Neck: Supple, No JVD, No thryomegaly, +2 Carotid Pulse wo Bruit Lymphatic: Cervical nl Cardiovascular: Regular Rate, Normal S1, Normal S2, No Murmurs Lungs: Clear to Auscultation, Normal Air Movement Abdomen: Normal Bowel Sounds, Soft, No Tenderness, No Hepatospenomegaly Neurological: Normal Speech, Normal Tone, Cranial Nerves 3-12 NL Extremities: No Edema, Normal Pulses This is an 86-year-old lady with previous history of significant smoking, very severe emphysema noted in the CT scan since 2013, hypertension, hyperlipidemia, recent bloody diarrhea with CT scan suggestive of ischemic colitis now slowly improving, recent altered mental status upon admission, stable high right frontal meningioma which is 2.7 x 2.7 cm, moderate chronic white matter microangiopathy, now has the following issues * Extensive PE in central left PA with left sided emboli with no clear evidence of rt heart failure, seen in the recent ct, now being admitted for IV heparin ( pt had bloody diarrhea with ischemic colitis recently) stool heme neg * Severely enlarged PA both sides with corpulmonale * Very severe emphysema noted in the CT scan * Recent episode of Significant left-sided ischemic colitis with vascular disease as noted in the CT scan of the abdomen now with recent admission and dc from this hospital with bloody diarrhea altered mental status mild lactic acidosis. 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 -- Lolly 07/28/14 Pertinent Lab Results: Laboratory Tests 10/23 10/23 10/22 0725 9790 1235 Chemistry Sodium (137 - 145 mmol/L) 139 Potassium (3.5 - 5.1 mmol/L) 4.4 Chloride (98 - 107 mmol/L) 108 H Carbon Dioxide (22 - 30 mmol/L) 21 L Anion Gap (5 - 16) 10 BUN (7 - 17 mg/dL) 10 Creatinine (0.5 - 1.0 mg/dL) 0.8 Estimated GFR (>60 ml/min) > 60 BUN/Creatinine Ratio (7 - 25 %) 12.5 Coagulation APTT (25 - 37 SEC) 86 H 43 H Hematology CBC w Diff NO MAN DIFF REQ WBC (4.8 - 10.8 /CUMM) 5.8 RBC (4.20 - 5.40 /CUMM) 3.66 L Hgb (12.0 - 16.0 G/DL) 11.4 L Hct (37 - 47 %) 33.8 L MCV (81.0 - 99.0 FL) 92.4 MCH (27.0 - 31.0 PG) 31.2 H MCHC (33.0 - 37.0 G/DL) 33.7 RDW (11.5 - 14.5 %) 15.3 H Plt Count (130 - 400 /CUMM) 301 MPV (7.4 - 10.4 FL) 7.5 Gran % (42.2 - 75.2 %) 39.7 L Lymphocytes % (20.5 - 51.1 %) 44.2 Monocytes % (1.7 - 9.3 %) 11.7 H Eosinophils % (0 - 5 %) 3.7 Basophils % (0.0 - 2.0 %) 0.7 Absolute Granulocytes (1.4 - 6.5 /CUMM) 2.3 Absolute Lymphocytes (1.2 - 3.4 /CUMM) 2.6 Absolute Monocytes (0.10 - 0.60 /CUMM) 0.7 H Absolute Eosinophils (0.0 - 0.7 /CUMM) 0.2 Absolute Basophils (0.0 - 0.2 /CUMM) 0 10/22 10/22 1829 1128 Coagulation APTT (25 - 37 SEC) 101 *H Hematology CBC w Diff NO MAN DIFF REQ WBC (4.8 - 10.8 /CUMM) 8.0 RBC (4.20 - 5.40 /CUMM) 4.13 L Hgb (12.0 - 16.0 G/DL) 12.8 Hct (37 - 47 %) 38.5 MCV (81.0 - 99.0 FL) 93.3 MCH (27.0 - 31.0 PG) 31.0 MCHC (33.0 - 37.0 G/DL) 33.2 RDW (11.5 - 14.5 %) 15.2 H Plt Count (130 - 400 /CUMM) 358 MPV (7.4 - 10.4 FL) 7.9 Gran % (42.2 - 75.2 %) 50.5 Lymphocytes % (20.5 - 51.1 %) 37.4 Monocytes % (1.7 - 9.3 %) 9.2 Eosinophils % (0 - 5 %) 2.2 Basophils % (0.0 - 2.0 %) 0.7 Absolute Granulocytes (1.4 - 6.5 /CUMM) 4.1 Absolute Lymphocytes (1.2 - 3.4 /CUMM) 3.0 Absolute Monocytes (0.10 - 0.60 /CUMM) 0.7 H Absolute Eosinophils (0.0 - 0.7 /CUMM) 0.2 Absolute Basophils (0.0 - 0.2 /CUMM) 0.1 10/22 10/22 0533 0323 Chemistry Sodium (137 - 145 mmol/L) 141 Potassium (3.5 - 5.1 mmol/L) 3.3 L Chloride (98 - 107 mmol/L) 112 H Carbon Dioxide (22 - 30 mmol/L) 20 L Anion Gap (5 - 16) 9 BUN (7 - 17 mg/dL) 10 Creatinine (0.5 - 1.0 mg/dL) 0.6 Estimated GFR (>60 ml/min) > 60 BUN/Creatinine Ratio (7 - 25 %) 16.7 Coagulation APTT (25 - 37 SEC) > 120 *H Hematology CBC w Diff NO MAN DIFF REQ WBC (4.8 - 10.8 /CUMM) 7.0 RBC (4.20 - 5.40 /CUMM) 3.33 L Hgb (12.0 - 16.0 G/DL) 10.3 L Hct (37 - 47 %) 30.9 L MCV (81.0 - 99.0 FL) 93.0 MCH (27.0 - 31.0 PG) 31.1 H MCHC (33.0 - 37.0 G/DL) 33.4 RDW (11.5 - 14.5 %) 14.7 H Plt Count (130 - 400 /CUMM) 293 MPV (7.4 - 10.4 FL) 7.1 L Gran % (42.2 - 75.2 %) 54.5 Lymphocytes % (20.5 - 51.1 %) 31.8 Monocytes % (1.7 - 9.3 %) 9.8 H Eosinophils % (0 - 5 %) 3.1 Basophils % (0.0 - 2.0 %) 0.8 Absolute Granulocytes (1.4 - 6.5 /CUMM) 3.8 Absolute Lymphocytes (1.2 - 3.4 /CUMM) 2.2 Absolute Monocytes (0.10 - 0.60 /CUMM) 0.7 H Absolute Eosinophils (0.0 - 0.7 /CUMM) 0.2 Absolute Basophils (0.0 - 0.2 /CUMM) 0.1 10/21 1941 Chemistry Sodium (137 - 145 mmol/L) 136 L Potassium (3.5 - 5.1 mmol/L) 5.0 Chloride (98 - 107 mmol/L) 99 Carbon Dioxide (22 - 30 mmol/L) 26 Anion Gap (5 - 16) 11 BUN (7 - 17 mg/dL) 16 Creatinine (0.5 - 1.0 mg/dL) 1.0 Estimated GFR (>60 ml/min) 53 L BUN/Creatinine Ratio (7 - 25 %) 16.0 Glucose (65 - 99 mg/dL) 140 H Calcium (8.4 - 10.2 mg/dL) 9.5 Total Bilirubin (0.2 - 1.3 mg/dL) 0.5 AST (14 - 36 U/L) 32 ALT (9 - 52 U/L) 30 Alkaline Phosphatase (<127 U/L) 27 Troponin I (< 0.11 ng/ml) 0.02 Ecf-O-Rsqqqlgqdve Pept (<125 pg/mL) 173 H Total Protein (6.3 - 8.2 g/dL) 7.5 Albumin (3.5 - 5.0 g/dL) 4.1 Globulin (1.9 - 4.2 gm/dL) 3.4 Albumin/Globulin Ratio (1.1 - 2.2 %) 1.2 Coagulation PT (9.4 - 12.5 SEC) 11.6 INR (0.90 - 1.19) 1.11 APTT (25 - 37 SEC) 28 Hematology CBC w Diff NO MAN DIFF REQ WBC (4.8 - 10.8 /CUMM) 7.4 RBC (4.20 - 5.40 /CUMM) 4.02 L Hgb (12.0 - 16.0 G/DL) 12.5 Hct (37 - 47 %) 37.3 MCV (81.0 - 99.0 FL) 92.8 MCH (27.0 - 31.0 PG) 31.2 H MCHC (33.0 - 37.0 G/DL) 33.6 RDW (11.5 - 14.5 %) 14.9 H Plt Count (130 - 400 /CUMM) 387 MPV (7.4 - 10.4 FL) 7.2 L Gran % (42.2 - 75.2 %) 49.6 Lymphocytes % (20.5 - 51.1 %) 36.1 Monocytes % (1.7 - 9.3 %) 10.5 H Eosinophils % (0 - 5 %) 3.1 Basophils % (0.0 - 2.0 %) 0.7 Absolute Granulocytes (1.4 - 6.5 /CUMM) 3.7 Absolute Lymphocytes (1.2 - 3.4 /CUMM) 2.7 Absolute Monocytes (0.10 - 0.60 /CUMM) 0.8 H Absolute Eosinophils (0.0 - 0.7 /CUMM) 0.2 Absolute Basophils (0.0 - 0.2 /CUMM) 0.1 Impression/Plan Impression/Plan Impression/Plan: IMPRESSION: 1. Extensive central left main pulmonary artery and left lower lobe pulmonary artery emboli are seen with extension into the proximal segmental branches of the left lower lobe. No definite evidence of elevated right heart pressures is seen. 2. Volume loss and presumed focal inflammatory change/consolidation versus atelectasis in the left lower lobe. 3. No significant change in 2 small 7 mm solid noncalcified nodules in the right upper lobe. 4. Extensive underlying obstructive lung disease with presumed secondary chronic pulmonary arterial hypertension. 5. Please refer to abnormal findings in the abdomen and pelvis as reported on the original report. 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 ORAL DAILY Continue taking these medications: Lisinopril (Lisinopril) 20 MG TABLET 1 Tablet ORAL DAILY Comments: LAST TAKEN: 10/23/17 @ 5 PM Simvastatin (Simvastatin*) 40 MG TABLET 1 Tablet ORAL Every other day Comments: NOT ADMINISTERED IN HOSPITAL ATORVASTATIN GIVEN 10/23/16 5PM) Umeclidinium Brm/Vilanterol Tr (Anoro Ellipta 62.5-25 Mcg INH) 62.5 MCG-25 MCG/ ACTUATION BLST.W.DEV 1 PUFF Inhale through mouth DAILY Qty = 60 Comments: NOT TAKEN IN HOSPITAL Start taking the following new medications: Enoxaparin Sodium (Lovenox) 100 MG/ML SYRINGE 1 Syringe Inject into fatty tissue DAILY Qty = 14 No Refills Comments: LAST TAKEN: 10/24/17 @ 10 AM Copies To: [facility] MARTÍNEZ,Guru Gonzalez
== END 2017-10-24 15:30 | DRG 175 ==
LOC: ERH 19:04 → ERHI 20:56 → 2NA 20:56 → ERHI 10-22 08:27 → ENTRNSPT 10-22 13:30 → EDTRNSPT 10-22 13:33 → EDTRNSPTTYP 10-22 13:34 → EDTRNSPT 10-22 13:34 → EDBEDREQ 10-22 13:46 → CMPTRNSPT 10-22 14:05 → ENRESERV 10-22 19:17 → ENTRNSPT 10-22 21:42 → EDTRNSPT 10-22 21:50 → EDTRNSPTSTS 10-22 21:50 → 2NA 10-22 21:59 → CMPTRNSPT 10-22 22:12 → ENPENDDIS 10-24 14:47 → 2NA 10-24 15:30
PROVIDERS: Emergency Medicine; Internal Medicine; Internal Medicine Hematology & Oncology; Internal Medicine Pulmonary Disease; Physician Assistant Medical
DX: I26.09 Other pulmonary embolism with acute cor pulmonale (principal); K55.9 Vascular disorder of intestine, unspecified; I73.9 Peripheral vascular disease, unspecified; J44.9 Chronic obstructive pulmonary disease, unspecified; I10 Essential (primary) hypertension; M35.3 Polymyalgia rheumatica; Z86.73 Personal history of transient ischemic attack (TIA), and cerebral infarction without residual deficits; E78.5 Hyperlipidemia, unspecified; Z79.82 Long term (current) use of aspirin; D32.0 Benign neoplasm of cerebral meninges; Z80.0 Family history of malignant neoplasm of digestive organs; Z80.1 Family history of malignant neoplasm of trachea, bronchus and lung; Z87.891 Personal history of nicotine dependence; Z66 Do not resuscitate; E03.9 Hypothyroidism, unspecified
CPT/HCPCS: 2NASP; ERO; 36415; 36592; 82436; 93005; 93010; 93306; 93970; 96365; 96366; 96374; 99291; J1644; J1650